=== PATIENT | female | born 1945 | race Caucasian/White ===

== ENCOUNTER 2016-10-05 18:42 | Emergency (ER) | payer MEDICARE, BC ==
[2016-10-05] MEDS ORDERED: NITROGLYCERIN SL 0.4 MG TABLET SL ONE (18:57)
--- NOTE | 2016-10-05 18:57 | ED Physician Documentation ---
PD HPI CHEST PAIN - Stated complaint Stated Complaint: CHEST PX - Chief complaint Chief Complaint: Cardiac - History obtained from History obtained from: Patient, Family - History of Present Illness Timing - onset: How many minutes ago (10), Today Timing - onset during: Rest Timing - duration: Minutes (10) Timing - details: Abrupt onset Pain level max: 8 Pain level now: 8 Quality: Aching, Pain Location: Substernal, Left chest Radiation: Back Improved by: Nothing Worsened by: No: Exertion, Inspiration, Eating, Movement, Palpation, Position Associated symptoms: Shortness of air, Nausea, Feeling faint / dizzy, General Weakness. No: Diaphoresis, Vomiting, Palpitations, Cough Similar symptoms before: Has not had sx before Recently seen: Not recently seen - Additional information Additional information: started after eating a indonesian dog. 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 - Allergies Allergies/Adverse Reactions: Allergies Allergy/AdvReac Type Severity Reaction Status Date / Time erythromycin base Allergy Unknown Verified 10/05/16 18:49 erythromycin lactobionate * Allergy Unknown Verified 10/05/16 18:49 [From Erythrocin] Penicillins Allergy Respiratory Verified 10/05/16 18:49 Sulfa (Sulfonamide Allergy Rash Verified 10/05/16 18:49 Antibiotics) PD ED PE NORMAL - Vitals Vital signs reviewed: Yes - General General: Alert and oriented X 3, No acute distress, Well developed/nourished - HEENT HEENT: PERRL, Moist mucous membranes - Neck Neck: Supple, no meningeal sign - Cardiac Cardiac: RRR, Strong equal pulses - Respiratory Respiratory: No respiratory distress, Clear bilaterally - Abdomen Abdomen: Soft, Non tender, Non distended - Derm Derm: Warm and dry - Extremities Extremities: No edema, No calf tenderness / cord - Neuro Neuro: Alert and oriented X 3, No motor deficit, No sensory deficit - Psych Psych: Normal mood, Normal affect Results - Vitals Vitals: Vital Signs - 24 hr 10/05/16 10/05/16 18:46 19:10 Temperature 37.0 C Heart Rate 117 H 119 H Respiratory 20 20 Rate Blood Pressure 196/116 H 162/103 H O2 Saturation 99 97 Oxygen O2 Source Room air - EKG (time done) 1853 Rate: Rate (enter#) (113) Rhythm: Sinus tachycardia [place]: Normal Intervals: Normal MD QRS: Normal Ischemia: ST elevation c/w ischemia (V2-3) Computer interpretation: Agree with computer 1908 Rate: Rate (enter#) (117) Rhythm: Sinus tachycardia [place]: Normal Intervals: Normal MD QRS: Normal Ischemia: ST elevation c/w ischemia (V2-3), Q waves (III, aVF) Computer interpretation: Agree with computer - Labs Labs: Laboratory Tests 10/05/16 10/05/16 10/05/16 18:52 18:52 18:52 WBC 8.1 RBC 5.69 H Hgb 16.1 H Hct 48.3 H MCV 84.8 MCH 28.4 MCHC 33.5 RDW 13.8 Plt Count 225 MPV 8.3 Neut # 4.2 Lymph # 2.7 [place] # 0.8 Eos # 0.3 Baso # 0.1 Absolute Nucleated RBC 0.01 Nucleated RBCs 0.1 Sodium 141 Potassium 2.9 L Chloride 103 Carbon Dioxide 28 Anion Gap 10.0 BUN 16 Creatinine 0.9 Estimated GFR (MDRD) 62 L Glucose 176 H Calcium 9.4 Total Bilirubin 0.6 AST 26 ALT 36 Alkaline Phosphatase 72 Troponin I < 0.04 Total Protein 7.8 Albumin 4.7 Globulin 3.1 Albumin/Globulin Ratio 1.5 Lipase 61 H PD MEDICAL DECISION MAKING - ED course Complexity details: reviewed results, re-evaluated patient, considered differential, d/w patient, d/w family, d/w business process consultant ED course: Activated as STEMI called @[phone] - Dr. Andreas Askew [facility] graciously accepts in transfer. Started on heparin gtt. 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 given NTG and pain and BP improved. Will hold plavix awaiting cardiology recommendations. CXR unable to be performed here as EMS ready to transport. Patient transferred to [facility] for further evaluation and care. Follow-up from the [facility]' Coordinator revealed a 90% stenosis with thrombus of the LAD. This was stented at [facility]. Departure - Departure Disposition: 02 Transfer Acute Care Hosp Clinical Impression: STEMI (ST elevation myocardial infarction) Qualifiers: Involved coronary artery: unspecified coronary artery Qualified Code(s): I21.3 - ST elevation (STEMI) myocardial infarction of unspecified site Condition: Stable Discharge Date/Time: 10/05/16 19:27
[2016-10-05] MEDS ORDERED: HEPARIN 5,000 UNIT/ML VIAL IVP ONE (18:58)
[2016-10-05] MEDS ORDERED: HEPARIN 25,000 UNITS/500 ML 500 ML IV STA (18:58)
[2016-10-05] MEDS: NITROGLYCERIN SL 0.4 MG TABLET SL PRN ×2 (18:58→19:06)
[2016-10-05] MEDS ORDERED: HEPARIN 25,000 UNITS/500 ML 500 ML IV ONE (19:00)
[2016-10-05] MEDS ORDERED: HEPARIN 5,000 UNIT/ML VIAL ONE (19:00)
[2016-10-05 19:03] LABS: BASOPHILS # (AUTO) 0.1 10^3/uL (0.0-0.1); BASOPHILS % (AUTO) 0.8 %; EOSINOPHILS # (AUTO) 0.3 10^3/uL (0.0-0.7); EOSINOPHILS % (AUTO) 3.5 %; HCT - HEMATOCRIT 48.3 % (37.0-47.0); HGB - HEMOGLOBIN 16.1 g/dL (12.0-16.0); LYMPHOCYTES # (AUTO) 2.7 10^3/uL (1.5-3.5); LYMPHOCYTES % (AUTO) 33.5 %; MEAN CORPUSCULAR HEMOGLOBIN 28.4 pg (27.0-31.0); MEAN CORPUSCULAR HGB CONC 33.5 g/dL (32.0-36.0); MEAN CORPUSCULAR VOLUME 84.8 fL (81.0-99.0); MEAN PLATELET VOLUME 8.3 fL (7.9-10.8); MONOCYTES # (AUTO) 0.8 10^3/uL (0.0-1.0); MONOCYTES % (AUTO) 10.3 %; NEUTROPHILS # (AUTO) 4.2 10^3/uL (1.5-6.6); NEUTROPHILS % (AUTO) 51.9 %; NUCLEATED RED BLOOD CELLS AUTO 0.1 /100WBC; RED BLOOD COUNT 5.69 10^6/uL (4.20-5.40); RED CELL DISTRIBUTION WIDTH 13.8 % (12.0-15.0); UNCORRECTED WHITE BLOOD COUNT 8.1 x10^3/uL; WHITE BLOOD COUNT 8.1 x10^3/uL (4.8-10.8)
[2016-10-05 19:12] VITALS: BP 162/103
[2016-10-05 19:14] LABS: ALBUMIN/GLOBULIN RATIO 1.5 (1.0-2.2); BILIRUBIN,TOTAL 0.6 mg/dL (0.2-1.0); CALCIUM 9.4 mg/dL (8.5-10.3); CREATININE 0.9 mg/dL (0.4-1.0); POTASSIUM 2.9 mmol/L (3.5-5.0); TOTAL PROTEIN 7.8 g/dL (6.7-8.2)
== END 2016-10-05 19:27 | disposition short-term general hospital (02) ==
LOC: ED 18:42
DX: I21.3 ST elevation (STEMI) myocardial infarction of unspecified site (principal); R00.0 Tachycardia, unspecified
CPT/HCPCS: 80053; 83690; 84484; 85025; 93005; 96365; 96376; 99284; A9270

== ENCOUNTER 2016-10-05 19:17 | Outpatient (CLI) | payer MEDICARE, BC | END 2016-10-05 19:18 | disposition short-term general hospital (02) | LOC: EMS 19:17 | PROVIDERS: ATTEND Surgery | DX: I21.3 ST elevation (STEMI) myocardial infarction of unspecified site (principal) | CPT/HCPCS: A0425; A0427 ==

== ENCOUNTER 2016-10-10 02:37 | Emergency (ER) | payer MEDICARE, BC ==
[2016-10-10 02:48] VITALS: BP 164/82
--- NOTE | 2016-10-10 03:02 | ED Physician Documentation ---
PD HPI WOUND RECHECK - Stated complaint Stated Complaint: BLEEDING,PAIN POST OP - Chief complaint Chief Complaint: Ext Problem - Histroy obtained from History obtained from: Patient, Family - History of Present Illness Location: Right Lower Extremity Timing - onset: Today Associated symptoms: Swelling Similar symptoms before: Work up / diagnostics, Treatment Recently seen: Surgery - Additional information Additional information: Patient is a 71 year old female with a recent stemi a few days ago. Patient states that she had some pain in her groin and felt a bump so she wanted to get the area evaluated. Review of Systems Constitutional: denies: Fever, Chills Eyes: denies: Loss of vision Ears: denies: Ear pain Nose: denies: Rhinorrhea / runny nose, Congestion Cardiac: denies: Chest pain / pressure, Palpitations, Calf pain Respiratory: denies: Dyspnea, Cough GI: denies: Abdominal Pain, Nausea, Vomiting : denies: Dysuria, Hematuria Skin: reports: Other (multiple ecchymosis in various stages of color) Musculoskeletal: reports: Extremity pain, Extremity swelling Neurologic: denies: Generalized weakness, Focal weakness, Numbness Immunocompromised: denies: Immunocompromised PD PAST MEDICAL HISTORY - Past Medical History Cardiovascular: Hypertension Respiratory: None Neuro: None Musculoskeletal: Osteoarthritis, Chronic back pain - Past Surgical History Past Surgical History: Yes General: Cholecystectomy, 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 - Present Medications Home Medications: Ambulatory Orders Medication Instructions Recorded Confirmed Aspirin 81 mg PO DAILY 10/10/16 10/10/16 Atorvastatin Calcium 10 mg PO DAILY 10/10/16 10/10/16 Cholecalciferol [Vitamin D3] 5,000 unit ORAL DAILY 10/10/16 10/10/16 Lactobacillus Combo No.23 [Fabricio 1 each PO DAILY 10/10/16 10/10/16 Probiotic] Metoprolol Succinate 50 mg PO DAILY 10/10/16 10/10/16 [place]-3 Fatty Acids/Fish Oil [Cvs 1 each PO DAILY 10/10/16 10/10/16 Fish Oil 1,200 mg Softgel] Prasugrel HCl [Effient] 10 mg PO DAILY 10/10/16 10/10/16 Spironolact/Hydrochlorothiazid 1 each PO DAILY 10/10/16 10/10/16 [Aldactazide 25-25 Tablet] - Allergies Allergies/Adverse Reactions: Allergies Allergy/AdvReac Type Severity Reaction Status Date / Time erythromycin base Allergy Unknown Verified 10/10/16 02:48 erythromycin lactobionate * Allergy Unknown Verified 10/10/16 02:48 [From Erythrocin] Penicillins Allergy Respiratory Verified 10/10/16 02:48 Sulfa (Sulfonamide Allergy Rash Verified 10/10/16 02:48 Antibiotics) - Social History Does the pt smoke?: No Smoking Status: Never smoker Does the pt drink ETOH?: No Does the pt have substance abuse?: No - Immunizations Immunizations are current?: Yes - POLST Patient has POLST: No PD ED PE NORMAL - Vitals Vital signs reviewed: Yes - General General: Alert and oriented X 3, No acute distress - HEENT HEENT: Atraumatic, PERRL - Neck Neck: Supple, no meningeal sign - Cardiac Cardiac: RRR, No murmur - Respiratory Respiratory: No respiratory distress - Abdomen Abdomen: Soft - Extremities Extremities: Normal ROM s pain, No edema - Neuro Neuro: Alert and oriented X 3, No motor deficit, No sensory deficit, Normal speech - Psych Psych: Normal mood, Normal affect PD ED PE EXPANDED - Abdomen Abdomen: Other (mild tenderness to palpation in right groin, no pulsatile mass, miminal swelling under 0.5cm) - Derm Derm: Bruising (bruising across patient's abdomen) Results - Vitals Vitals: Vital Signs - 24 hr 10/10/16 02:44 Temperature 36.2 C L Heart Rate 94 Respiratory 16 Rate Blood Pressure 164/82 H O2 Saturation 95 Oxygen O2 Source Room air PD MEDICAL DECISION MAKING - ED course Complexity details: reviewed old records, re-evaluated patient, considered differential, d/w patient, d/w family ED course: Patient was seen and examined at bedside. bedside ultrasound was performed in the region where she had pain, there were no signs of hematoma or any extravascular fluid collection. patient and were given detailed discharge and follow up instructions. Patient and were comfortable with the plan and stable for discharge with outpatient follow up. Departure - Departure Disposition: 01 Home, Self Care Clinical Impression: Hematoma Condition: Good Instructions: ED Hematoma Follow-Up: Natalie Mo MD [Primary Care Provider] - Within 1 week Comments: the ultrasound showed no large hematoma or active extravascular collection. you should apply warm compresses to the area and follow up with the surgical team. You should monitor for signs of hypotension and tachycardia. You may return to the emergency department at any time for expanding hematoma. worsening pain, new worsening or uncontrollable symptoms. Discharge Date/Time: 10/10/16 03:22
== END 2016-10-10 03:22 | disposition home or self-care (01) ==
LOC: ED 02:37
DX: L76.32 Postprocedural hematoma of skin and subcutaneous tissue following other procedure (principal); I10 Essential (primary) hypertension; M19.90 Unspecified osteoarthritis, unspecified site; Z79.82 Long term (current) use of aspirin
CPT/HCPCS: 99282; 99283

== ENCOUNTER 2016-10-17 06:48 | Emergency (ER) | payer MEDICARE, BC ==
--- NOTE | 2016-10-17 07:31 | ED Physician Documentation ---
History of Present Illness - Stated complaint Stated Complaint: RAPID HR - Chief complaint Chief Complaint: Cardiac - History obtained from History obtained from: Patient, Family - Additonal information Additional information: Patient is a 71-year-old female who had a ST segment myocardial infarction on 05 October. She is sent to an outside hospital and had stenting done. 3 stents were placed in LAD at that time. She is currently on Effient and aspirin. Post stent placement she was taken back to the angiography suite and a second look was performed he has had recurrence of symptoms and there is a concern for stent closure. The stents at this time were found to be widely patent. She was seen here on the for bruising in the right groin which is improving. She is here this morning with a complaint of fluttering sensation in her chest. She believes she might be hypokalemic again since this is occurred before. She denies any chest pain or chest pressure there is no shortness of breath. She has not had any nausea, vomiting, fever or chills. She has had some issues with constipation. Review of systems: For pertinent positive and negatives in the review of systems please see the history of present illness, otherwise all other systems have been reviewed and are negative. Dragon disclaimer: Parts of this medical record were created using voice recognition technology. Because of the inherent limitations of this system, occasional same sounding word substitutions do occur and persist despite proofreading. Please read the document for context. Review of Systems Ten Systems: 10 systems reviewed and negative Cardiac: reports: Palpitations. denies: Chest pain / pressure, Pedal edema, Calf pain Respiratory: denies: Dyspnea, Cough GI: reports: Constipation. 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: Hysterectomy - Present Medications Home Medications: Ambulatory Orders Medication Instructions Recorded Confirmed Aspirin 81 mg PO DAILY 10/10/16 10/17/16 Atorvastatin Calcium 10 mg PO DAILY 10/10/16 10/17/16 Cholecalciferol [Vitamin D3] 5,000 unit ORAL DAILY 10/10/16 10/17/16 Lactobacillus Combo No.23 [Fabricio 1 each PO DAILY 10/10/16 10/17/16 Probiotic] Metoprolol Succinate 50 mg PO DAILY 10/10/16 10/17/16 [place]-3 Fatty Acids/Fish Oil [Cvs 1 each PO DAILY 10/10/16 10/17/16 Fish Oil 1,200 mg Softgel] Prasugrel HCl [Effient] 10 mg PO DAILY 10/10/16 10/17/16 Spironolact/Hydrochlorothiazid 1 each PO DAILY 10/10/16 10/17/16 [Aldactazide 25-25 Tablet] - Allergies Allergies/Adverse Reactions: Allergies Allergy/AdvReac Type Severity Reaction Status Date / Time erythromycin base Allergy Unknown Verified 10/10/16 02:48 erythromycin lactobionate * Allergy Unknown Verified 10/10/16 02:48 [From Erythrocin] Penicillins Allergy Respiratory Verified 10/10/16 02:48 Sulfa (Sulfonamide Allergy Rash Verified 10/10/16 02:48 Antibiotics) - Social History Does the pt smoke?: No Smoking Status: Never smoker Does the pt drink ETOH?: No Does the pt have substance abuse?: No - Immunizations Immunizations are current?: Yes - POLST Patient has POLST: No PD ED PE NORMAL - General General: Alert and oriented X 3, No acute distress, Well developed/nourished - HEENT HEENT: Atraumatic, PERRL - Neck Neck: Supple, no meningeal sign - Cardiac Cardiac: RRR, No murmur, No gallop, No rub - Respiratory Respiratory: No respiratory distress, Clear bilaterally - Abdomen Abdomen: Normal bowel sounds, Soft, Non tender, Non distended - Back Back: No CVA TTP - Derm Derm: Normal color, Warm and dry, No rash, Other - Extremities Extremities: No deformity, No tenderness to palpate, Normal ROM s pain - Neuro Neuro: Alert and oriented X 3, No motor deficit, No sensory deficit - Psych Psych: Normal mood, Normal affect Results - Vitals Vitals: Vital Signs - 24 hr 10/17/16 10/17/16 10/17/16 06:57 07:51 08:30 Temperature 36.4 C L Heart Rate 92 76 76 Respiratory 20 18 18 Rate Blood Pressure 146/89 H 113/63 117/73 O2 Saturation 98 94 Oxygen O2 Source Room air - Labs Labs: Laboratory Tests 10/17/16 10/17/16 10/17/16 07:02 07:02 07:02 WBC 8.6 RBC 5.41 H Hgb 15.5 Hct 46.4 MCV 85.7 MCH 28.7 MCHC 33.5 RDW 13.9 Plt Count 299 MPV 8.5 Neut # 5.7 Lymph # 1.7 [place] # 0.9 Eos # 0.2 Baso # 0.1 Absolute Nucleated RBC 0.00 Nucleated RBCs 0.1 Sodium 135 Potassium 3.6 Chloride 96 L Carbon Dioxide 28 Anion Gap 11.0 BUN 22 H Creatinine 1.0 Estimated GFR (MDRD) 55 L Glucose 141 H Calcium 9.2 Magnesium 2.2 Troponin I < 0.04 B-Natriuretic Peptide Urine Color Urine Clarity Urine pH Ur Specific [place] Urine Protein Urine Glucose (UA) Urine Ketones Urine Occult Blood Urine Nitrite Urine Bilirubin Urine Urobilinogen Ur Leukocyte Esterase Urine RBC Urine WBC Ur Squamous Epith Cells Urine Bacteria Ur Microscopic Review Urine Culture Comments 10/17/16 10/17/16 07:02 09:08 WBC RBC Hgb Hct MCV MCH MCHC RDW Plt Count MPV Neut # Lymph # [place] # Eos # Baso # Absolute Nucleated RBC Nucleated RBCs Sodium Potassium Chloride Carbon Dioxide Anion Gap BUN Creatinine Estimated GFR (MDRD) Glucose Calcium Magnesium Troponin I B-Natriuretic Peptide 25 Urine Color YELLOW Urine Clarity CLEAR Urine pH 6.0 Ur Specific [place] 1.010 Urine Protein NEGATIVE Urine Glucose (UA) NEGATIVE Urine Ketones TRACE Urine Occult Blood NEGATIVE Urine Nitrite NEGATIVE Urine Bilirubin NEGATIVE Urine Urobilinogen 0.2 (NORMAL) Ur Leukocyte Esterase SMALL H Urine RBC 0-5 Urine WBC 4-5 Ur Squamous Epith Cells MANY Squamous H Urine Bacteria Few Ur Microscopic Review INDICATED Urine Culture Comments NOT INDICATED PD MEDICAL DECISION MAKING - ED course Complexity details: reviewed old records, reviewed results, re-evaluated patient , considered differential, d/w patient, d/w family, other ED course: Patient is a 71-year-old female status post 3 stents to her LAD on 10/06/16. The patient was taken back to the [facility] for recurrent chest pain however she had ZHANG grade III flow and there is no evidence of stent malfunction. She presents today with just a fluttering sensation in her chest which is reminiscent of episodes of hypokalemia. She has not had any chest pain heaviness shortness of breath or any other anginal equivalent. Her EKG was done and this EKG shows normal sinus rhythm 87 bpm NE QRS and QT intervals are all normal. There is incomplete left bundle branch block and T-wave inversion and V2 V3 and V4. These T-wave changes in anterior leads are similar to the EKG done post cath on 728 as I did obtain the medical records from the hospital who did her angiography. What is new however is a small Q-wave in inferiorly which is not unexpected given her acute STEMI. There are no new or unsuspected changes on this EKG tend a. Routine labs were done and were normal with the exception of mild elevation of her glucose. It was 140. A urinalysis was done to make sure there is no glycosuria and had 1+ ketones. She is given a liter fluid and feels better. The patient's cardiac enzymes are normal. Chest x-ray shows no acute intrathoracic disease. There is no evidence of uncontrolled diabetes. This fluttering sensation in her chest is not indicative of ongoing ischemia or stent malfunction. I believe the patient is able to be discharged at this time and good condition. Disposition: To home Clinical impression: 1. Palpitations 2. Status post cardiac stenting on 10/06/16 Departure - Departure Disposition: 01 Home, Self Care Clinical Impression: Heart palpitations Condition: Good Instructions: ED Palpitations Follow-Up: Natalie Mo MD [Primary Care Provider] -
[2016-10-17 07:52] LABS: BASOPHILS # (AUTO) 0.1 10^3/uL (0.0-0.1); BASOPHILS % (AUTO) 1.1 %; EOSINOPHILS # (AUTO) 0.2 10^3/uL (0.0-0.7); EOSINOPHILS % (AUTO) 2.2 %; HCT - HEMATOCRIT 46.4 % (37.0-47.0); HGB - HEMOGLOBIN 15.5 g/dL (12.0-16.0); LYMPHOCYTES # (AUTO) 1.7 10^3/uL (1.5-3.5); LYMPHOCYTES % (AUTO) 20.2 %; MEAN CORPUSCULAR HEMOGLOBIN 28.7 pg (27.0-31.0); MEAN CORPUSCULAR HGB CONC 33.5 g/dL (32.0-36.0); MEAN CORPUSCULAR VOLUME 85.7 fL (81.0-99.0); MEAN PLATELET VOLUME 8.5 fL (7.9-10.8); MONOCYTES # (AUTO) 0.9 10^3/uL (0.0-1.0); MONOCYTES % (AUTO) 10.3 %; NEUTROPHILS # (AUTO) 5.7 10^3/uL (1.5-6.6); NEUTROPHILS % (AUTO) 66.2 %; NUCLEATED RED BLOOD CELLS AUTO 0.1 /100WBC; RED BLOOD COUNT 5.41 10^6/uL (4.20-5.40); RED CELL DISTRIBUTION WIDTH 13.9 % (12.0-15.0); UNCORRECTED WHITE BLOOD COUNT 8.6 x10^3/uL; WHITE BLOOD COUNT 8.6 x10^3/uL (4.8-10.8)
--- NOTE | 2016-10-17 08:04 | XRAY Preliminary Report ---
Exam: XR Chest 1 View IMPRESSION: 1. Mild elevation of the right hemidiaphragm. 2. Lungs otherwise well-aerated without consolidation or edema. [facility] SITE ID: [id number]
--- NOTE | 2016-10-17 08:06 | XRAY Report ---
EXAM: CHEST RADIOGRAPHY EXAM DATE: 10/17/2016 07:49 AM. CLINICAL HISTORY: Palpitations, rapid heart rate. COMPARISON: None. TECHNIQUE: 1 view. FINDINGS: Heart size appears within normal limits. Mild elevation of the right hemidiaphragm. No focal pulmonar y consolidation or edema. IMPRESSION: 1. Mild elevation of the right hemidiaphragm. 2. Lungs otherwise well-aerated without consolidation or edema. [facility] Referring Provider Line: [phone] SITE ID: [id number]
[2016-10-17 08:25] LABS: CALCIUM 9.2 mg/dL (8.5-10.3); MAGNESIUM 2.2 mg/dL (1.7-2.8); POTASSIUM 3.6 mmol/L (3.5-5.0)
[2016-10-17 09:19] LABS: BILIRUBIN,URINE NEGATIVE (NEGATIVE)
[2016-10-17 09:20] LABS: UA w/ MICROSCOPIC CHARGE YES
[2016-10-17 09:26] LABS: UR CULTURE IF IND NOT INDICATED
[2016-10-17] MEDS ORDERED: SODIUM CHLORIDE 0.9% 1,000 ML IV ONE (09:38)
[2016-10-17 10:19] VITALS: BP 121/60
== END 2016-10-17 10:38 | disposition home or self-care (01) ==
LOC: ED 06:48
DX: R00.2 Palpitations (principal); I44.7 Left bundle-branch block, unspecified; I45.81 Long QT syndrome; I10 Essential (primary) hypertension; I25.2 Old myocardial infarction; Z95.5 Presence of coronary angioplasty implant and graft; Z79.82 Long term (current) use of aspirin; Z79.01 Long term (current) use of anticoagulants
CPT/HCPCS: 36415; 71010; 80048; 81001; 81003; 83735; 83880; 84484; 85025; 87086; 99284

== ENCOUNTER 2016-10-24 11:11 | Outpatient (CLI) | payer MEDICARE, BC ==
[2016-10-24 11:43] LABS: CALCIUM 9.3 mg/dL (8.5-10.3); CREATININE 0.9 mg/dL (0.4-1.0); POTASSIUM 3.6 mmol/L (3.5-5.0)
== END 2016-10-24 11:12 | disposition home or self-care (01) ==
LOC: LAB 11:11
PROVIDERS: ATTEND Internal Medicine
DX: I21.02 ST elevation (STEMI) myocardial infarction involving left anterior descending coronary artery (principal); I10 Essential (primary) hypertension
CPT/HCPCS: 36415; 80048

== ENCOUNTER 2016-10-25 12:15 | Emergency (ER) | payer MEDICARE, BC ==
[2016-10-25 12:56] LABS: BASOPHILS # (AUTO) 0.1 10^3/uL (0.0-0.1); BASOPHILS % (AUTO) 1.3 %; EOSINOPHILS # (AUTO) 0.1 10^3/uL (0.0-0.7); HCT - HEMATOCRIT 45.2 % (37.0-47.0); LYMPHOCYTES # (AUTO) 1.4 10^3/uL (1.5-3.5); LYMPHOCYTES % (AUTO) 24.2 %; MEAN CORPUSCULAR HEMOGLOBIN 28.2 pg (27.0-31.0); MEAN CORPUSCULAR HGB CONC 33.2 g/dL (32.0-36.0); MEAN PLATELET VOLUME 8.2 fL (7.9-10.8); MONOCYTES # (AUTO) 0.6 10^3/uL (0.0-1.0); MONOCYTES % (AUTO) 9.7 %; NEUTROPHILS # (AUTO) 3.7 10^3/uL (1.5-6.6); NEUTROPHILS % (AUTO) 62.8 %; RED BLOOD COUNT 5.32 10^6/uL (4.20-5.40); UNCORRECTED WHITE BLOOD COUNT 5.9 x10^3/uL; WHITE BLOOD COUNT 5.9 x10^3/uL (4.8-10.8)
[2016-10-25 13:02] LABS: INR 1.2 (0.8-1.2); PT - PROTHROMBIN TIME 13.1 secs (9.9-12.6)
[2016-10-25 13:08] LABS: ALBUMIN/GLOBULIN RATIO 1.5 (1.0-2.2); BILIRUBIN,TOTAL 0.9 mg/dL (0.2-1.0); CALCIUM 9.2 mg/dL (8.5-10.3); POTASSIUM 3.5 mmol/L (3.5-5.0); TOTAL PROTEIN 7.6 g/dL (6.7-8.2)
[2016-10-25 13:16] LABS: CREATINE KINASE MB 0.9 ng/mL (0.6-6.3)
[2016-10-25 13:20] LABS: TROPONIN I < 0.04 ng/mL (<0.49)
--- NOTE | 2016-10-25 13:22 | ED Physician Documentation ---
PD HPI CHEST PAIN - Stated complaint Stated Complaint: HIGH BP - Chief complaint Chief Complaint: Cardiac - History obtained from History obtained from: Patient - History of Present Illness Timing - onset: Other (She had an anterior STEMI on October 05. She had 3 stents placed in the LAD that night at [facility]. Her roundhouse worker is Dr. Lovelace. The next morning had more symptoms and was taken back to cath but there was no in- stent restenosis. Today she was sitting in her car relaxing and developed a feeling of being out of it and some mild chest pressure and shortness of breath which lasted about 10 minutes. During that time she checked her blood pressure and it was quite high. Now feels better.) Review of Systems Ten Systems: 10 systems reviewed and negative Constitutional: denies: Fever, Chills Cardiac: reports: Chest pain / pressure, Palpitations. 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 Cardiovascular: Coronary stent - Present Medications Home Medications: Ambulatory Orders Medication Instructions Recorded Confirmed Aspirin 81 mg PO DAILY 10/10/16 10/17/16 Atorvastatin Calcium 10 mg PO DAILY 10/10/16 10/17/16 Cholecalciferol [Vitamin D3] 5,000 unit ORAL DAILY 10/10/16 10/17/16 Lactobacillus Combo No.23 [Fabricio 1 each PO DAILY 10/10/16 10/17/16 Probiotic] Metoprolol Succinate 50 mg PO DAILY 10/10/16 10/17/16 [place]-3 Fatty Acids/Fish Oil [Cvs 1 each PO DAILY 10/10/16 10/17/16 Fish Oil 1,200 mg Softgel] Prasugrel HCl [Effient] 10 mg PO DAILY 10/10/16 10/17/16 Spironolact/Hydrochlorothiazid 1 each PO DAILY 10/10/16 10/17/16 [Aldactazide 25-25 Tablet] Nitroglycerin 0.4 mg SL Q5M PRN #1 bottle 10/25/16 - Allergies Allergies/Adverse Reactions: Allergies Allergy/AdvReac Type Severity Reaction Status Date / Time erythromycin base Allergy Unknown Verified 10/10/16 02:48 erythromycin lactobionate * Allergy Unknown Verified 10/10/16 02:48 [From Erythrocin] Penicillins Allergy Respiratory Verified 10/10/16 02:48 Sulfa (Sulfonamide Allergy Rash Verified 10/10/16 02:48 Antibiotics) - Social History Does the pt smoke?: No Smoking Status: Never smoker Does the pt drink ETOH?: No Does the pt have substance abuse?: No - Family History Family history: reports: Non contributory - Immunizations Immunizations are current?: Yes - POLST Patient has POLST: No PD ED PE NORMAL - Vitals Vital signs reviewed: Yes (BP 110/70 when I examine her) - General General: Alert and oriented X 3, No acute distress - HEENT HEENT: PERRL, EOMI - Neck Neck: Supple, no meningeal sign, No bony TTP - Cardiac Cardiac: RRR (with occ PVCs on monitor), No murmur - Respiratory Respiratory: No respiratory distress, Clear bilaterally - Abdomen Abdomen: Soft, Non tender - Extremities Extremities: No edema, No calf tenderness / cord - Neuro Neuro: Alert and oriented X 3, Normal speech - Psych Psych: Normal mood, Normal affect Results - Vitals Vitals: Vital Signs - 24 hr 10/25/16 10/25/16 12:25 14:09 Temperature 36.4 C L Heart Rate 98 69 Respiratory 18 15 Rate Blood Pressure 178/91 H 135/54 H O2 Saturation 96 97 Oxygen O2 Source Room air - EKG (time done) 1225 Rate: Rate (enter#) (85) Rhythm: NSR [place]: LAD Intervals: Other (IVCD with LVH and biphasic anterior T waves not too diff from 10/17/16) Computer interpretation: Agree with computer - Labs Labs: Laboratory Tests 10/25/16 10/25/16 10/25/16 12:48 12:48 12:48 WBC 5.9 RBC 5.32 Hgb 15.0 Hct 45.2 MCV 85.0 MCH 28.2 MCHC 33.2 RDW 14.0 Plt Count 248 MPV 8.2 Neut # 3.7 Lymph # 1.4 L [place] # 0.6 Eos # 0.1 Baso # 0.1 Absolute Nucleated RBC 0.00 Nucleated RBCs 0.0 PT 13.1 H INR 1.2 Sodium 136 Potassium 3.5 Chloride 97 L Carbon Dioxide 29 Anion Gap 10.0 BUN 17 Creatinine 1.0 Estimated GFR (MDRD) 55 L Glucose 153 H Calcium 9.2 Total Bilirubin 0.9 AST 31 ALT 43 Alkaline Phosphatase 73 Total Creatine Kinase 41 CK-MB (CK-2) Troponin I Total Protein 7.6 Albumin 4.6 Globulin 3.0 Albumin/Globulin Ratio 1.5 Lipase 73 H 10/25/16 12:48 WBC RBC Hgb Hct MCV MCH MCHC RDW Plt Count MPV Neut # Lymph # [place] # Eos # Baso # Absolute Nucleated RBC Nucleated RBCs PT INR Sodium Potassium Chloride Carbon Dioxide Anion Gap BUN Creatinine Estimated GFR (MDRD) Glucose Calcium Total Bilirubin AST ALT Alkaline Phosphatase Total Creatine Kinase CK-MB (CK-2) 0.9 Troponin I < 0.04 Total Protein Albumin Globulin Albumin/Globulin Ratio Lipase - Rads (name of study) 1v chest Radiology: EMP read contemporaneously (NAD) PD MEDICAL DECISION MAKING - ED course ED course: 71-year-old woman with resolved episode of chest pain, EKGs are expected after anterior STEMI. Case discussed by phone with her roundhouse worker, Dr. Russo who recommended conservative care, patient has a stress test scheduled in 2 days. Departure - Departure Disposition: 01 Home, Self Care Clinical Impression: Chest pain Qualifiers: Chest pain type: unspecified Qualified Code(s): R07.9 - Chest pain, unspecified Dyspnea Qualifiers: Dyspnea type: unspecified Qualified Code(s): R06.00 - Dyspnea, unspecified Condition: Good Record reviewed to determine appropriate education?: Yes Instructions: ED Chest Pain NonCardiac Prescriptions: Nitroglycerin 0.4 mg SL Q5M PRN #1 bottle PRN Reason: Chest Pain Comments: FOLLOWUP FOR STRESS NEXT WEEK SCHEDULED.
--- NOTE | 2016-10-25 13:59 | XRAY Preliminary Report ---
Exam: XR Chest 1 View IMPRESSION: No acute cardiopulmonary abnormality. [facility] SITE ID: [id number]
--- NOTE | 2016-10-25 14:02 | XRAY Report ---
EXAM: CHEST RADIOGRAPHY EXAM DATE: 10/25/2016 01:45 PM. CLINICAL HISTORY: Chest pain. COMPARISON: 10/17/2016. TECHNIQUE: 1 view. FINDINGS: Lungs/Pleura: Right diaphragm remains mildly elevated. No consolidative process. No significant inter julio change. Mediastinum: Within exam limitations, cardiomediastinal contour is normal. Other: None. IMPRESSION: No acute cardiopulmonary abnormality. [facility] Referring Provider Line: [phone] SITE ID: [id number]
[2016-10-25 14:35] VITALS: BP 120/64
== END 2016-10-25 14:35 | disposition home or self-care (01) ==
LOC: ED 12:15
DX: R07.9 Chest pain, unspecified (principal); R06.00 Dyspnea, unspecified; R94.31 Abnormal electrocardiogram [ECG] [EKG]; I10 Essential (primary) hypertension; I25.2 Old myocardial infarction; Z79.82 Long term (current) use of aspirin; Z95.5 Presence of coronary angioplasty implant and graft
CPT/HCPCS: 36415; 71010; 80053; 82550; 82553; 83690; 84484; 85025; 85610; 99283; 99284

== ENCOUNTER 2016-12-07 12:21 | Outpatient (CLI) | payer MEDICARE, BC ==
--- NOTE | 2016-12-07 15:02 | MRI Report ---
EXAM: MRI LUMBAR SPINE WITHOUT CONTRAST EXAM DATE: 12/07/2016 12:41 p.m. CLINICAL HISTORY: Low back pain. COMPARISON: Lumbar spine plain films 08/22/2007. TECHNIQUE: Multiplanar, multisequence T1-weighted and fluid-sensitive sequences of the lumbar spine f rom T12 to S1 without contrast. Other: None. FINDINGS: Spinal Cord: The conus terminates at T12-L1. The conus medullaris and cauda equina are unremarkable. The lumbar spinal canal is adequate. Alignment: Minimal, 2 mm, spondylolisthesis is seen at L4-L5. This is unchanged. Bone Marrow: Five [id number] lumbar vertebral bodies are assumed. Heterogeneous striated signal change is seen throughout the L2 and L3 vertebral bodies. Predominantly increased T1 and T2 signal wi th decreased STIR signal is present. Scattered patchy areas of decreased T1 with increased T2 and STI R signal are seen. Small foci of concavity are seen in the superior endplates consistent with Schmorl 's node formation. No pathologic fracture. Disk Levels/Facets: T12-L1: Unremarkable on sagittal series. L1-L2: Unremarkable. L2-L3: Mild degenerative facet change. No stenosis. L3-L4: Mild degenerative facet change. No stenosis. L4-L5: Marked right-sided and moderate left-sided hypertrophic degenerative facet change is seen. Min imal spondylolisthesis. Moderate loss of disk space height. Mild lateral disk bulge. Effacement of th e thecal sac is noted. No canal stenosis. Flattening of exiting right L4 nerve root is seen within th e foramen due primarily to degenerative facet change. Mild right foraminal stenosis. L5-S1: Moderate right-sided and marked left-sided hypertrophic degenerative facet change is seen. Fac et change causes effacement of the posterior aspect of exiting left L5 nerve root within the foramen. No foraminal stenosis. Musculature: Normal. No edema or fatty atrophy. Other: The partially visualized retroperitoneum is unremarkable. IMPRESSION: 1. Heterogeneous striated bone marrow signal change in the L2 and L3 vertebral bodies. This may be se condary to hemangioma. 2. L4-L5: Moderate to marked degenerative disk and facet change, greater on the right. Right mild for aminal stenosis. 3. L5-S1: Moderate to marked degenerative facet change, greater on the left. Mild left foraminal narr owing. Comment: The following findings are so common in adults without low back pain that while we report th eir presence, they must be interpreted with caution and in the context of the clinical situation. (Re faustina Wellington et al, Spine 2001) Prevalence of findings in patients without low back pain: Disk degeneration (any evidence): 92% Disk desiccation/T2 signal loss: 83% Disk height loss: 56% Disk bulge: 64% Disk protrusion: 32% Annular tear/high intensity zone: 38% [facility] Referring Provider Line: [phone] SITE ID: [id number]
== END 2016-12-07 12:22 | disposition home or self-care (01) ==
LOC: DI 12:21
PROVIDERS: ATTEND Internal Medicine
DX: M47.896 Other spondylosis, lumbar region (principal); M51.36 Other intervertebral disc degeneration, lumbar region; M43.16 Spondylolisthesis, lumbar region
CPT/HCPCS: 72148

== ENCOUNTER 2017-10-17 08:44 | Outpatient (CLI) | payer MEDICARE, BC ==
--- NOTE | 2017-10-17 14:19 | CT Report ---
Procedure Date: 10/17/2017 Accession Number: [id number] / [id number] Procedure: CT - Chest W/O CPT Code: FULL RESULT: EXAM: CT CHEST EXAM DATE: 10/17/2017 09:07 AM. CLINICAL HISTORY: LUNG NODULE LEFT UPPER LOBE,SEEN 10/05/16. COMPARISONS: 10/25/2016. TECHNIQUE: Routine helical CT imaging was performed through the chest. IV contrast: None. Reconstructions: Coronal and sagittal. In accordance with CT protocol optimization, one or more of the following dose reduction techniques were utilized for this exam: automated exposure control, adjustment of mA and/or KV based on patient size, or use of iterative reconstructive technique. FINDINGS: Lungs/Pleura: Mildly elevated right hemidiaphragm. Mild biapical pleural-parenchymal scarring. Linear atelectasis or scar right lower lobe. 4 mm left upper lobe nodule (image 23 series 4). No mass. No pleural effusion or pneumothorax. Mediastinum: Normal heart size. Left coronary stent. Bones: Unremarkable. Visualized Abdomen: Cholecystectomy. Small calcified splenic granulomas. Other: None. IMPRESSION: 1. 4 mm left upper lobe nodule. No further follow-up is required per Fleischner Society guidelines if the patient is low risk. If the patient is high risk for lung cancer a 12 month follow-up could be considered. If there is a prior CT chest, an addendum could be performed with comparison if made available. 2. Mildly elevated right hemidiaphragm. [facility]
== END 2017-10-17 08:45 | disposition home or self-care (01) ==
LOC: DI 08:44
PROVIDERS: ATTEND Internal Medicine
DX: R91.1 Solitary pulmonary nodule (principal)
CPT/HCPCS: 71250

== ENCOUNTER 2017-11-29 22:53 | Emergency (ER) | payer MEDICARE, BC ==
[2017-11-29 23:23] LABS: BASOPHILS # (AUTO) 0.1 10^3/uL (0.0-0.1); EOSINOPHILS # (AUTO) 0.3 10^3/uL (0.0-0.7); EOSINOPHILS % (AUTO) 5.2 %; HGB - HEMOGLOBIN 15.2 g/dL (12.0-16.0); LYMPHOCYTES # (AUTO) 1.8 10^3/uL (1.5-3.5); LYMPHOCYTES % (AUTO) 27.5 %; MEAN CORPUSCULAR HEMOGLOBIN 28.8 pg (27.0-31.0); MEAN CORPUSCULAR HGB CONC 33.9 g/dL (32.0-36.0); MEAN PLATELET VOLUME 8.1 fL (7.9-10.8); MONOCYTES # (AUTO) 0.7 10^3/uL (0.0-1.0); NEUTROPHILS # (AUTO) 3.7 10^3/uL (1.5-6.6); NEUTROPHILS % (AUTO) 56.3 %; PLT - PLATELET COUNT 213 10^3/uL (130-450); RED BLOOD COUNT 5.27 10^6/uL (4.20-5.40); RED CELL DISTRIBUTION WIDTH 14.2 % (12.0-15.0); WHITE BLOOD COUNT 6.6 x10^3/uL (4.8-10.8)
[2017-11-29 23:36] LABS: ALBUMIN 4.4 g/dL (3.2-5.5); ALBUMIN/GLOBULIN RATIO 1.3 (1.0-2.2); BILIRUBIN,TOTAL 0.6 mg/dL (0.2-1.0); CREATININE 0.8 mg/dL (0.4-1.0); TOTAL PROTEIN 7.9 g/dL (6.7-8.2)
--- NOTE | 2017-11-29 23:41 | XRAY Report ---
Reason: chest pain Procedure Date: 11/29/2017 Accession Number: [id number] / [id number] Procedure: XR - Chest 2 View X-Ray CPT Code: 47794 FULL RESULT: EXAM: CHEST RADIOGRAPHY EXAM DATE: 11/29/2017 11:12 PM. CLINICAL HISTORY: Chest pain. Palpitations. COMPARISON: CHEST 1 VIEW 10/25/2016 1:48 PM. TECHNIQUE: 2 views. FINDINGS: Lungs/Pleura: No focal opacities evident. No pleural effusion. No pneumothorax. Normal volumes. Chronic elevation of the right hemidiaphragm. Mediastinum: Heart and mediastinal contours are unremarkable. Other: No compression fracture. IMPRESSION: No acute findings. Chronic elevation of the anterior right hemidiaphragm. [facility]
--- NOTE | 2017-11-30 00:41 | ED Physician Documentation ---
PD HPI CHEST PAIN - Stated complaint Stated Complaint: CP - Chief complaint Chief Complaint: Cardiac - History obtained from History obtained from: Patient - History of Present Illness Timing - onset: Enter time (23:00), Today Timing - onset during: Rest Location: Substernal Radiation: No: Jaw, Neck, Back, Abdominal, Left upper extremity, Right upper extremity Improved by: Nothing Worsened by: Other Associated symptoms: No: Shortness of air, Nausea, Vomiting Recently seen: Not recently seen Review of Systems Constitutional: reports: Reviewed and negative Cardiac: reports: Chest pain / pressure. 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 : None HEENT: None Psych: None Musculoskeletal: Osteoarthritis, Chronic back pain Derm: None - Past Surgical History Past Surgical History: Yes General: Cholecystectomy, Appendectomy /MOVEMAN: Hysterectomy Cardiovascular: Coronary stent - Present Medications Home Medications: Ambulatory Orders Medication Instructions Recorded Confirmed Aspirin 81 mg PO DAILY 10/10/16 01/14/17 Atorvastatin Calcium 80 mg PO DAILY 10/10/16 01/14/17 Cholecalciferol [Vitamin D3] 5,000 unit ORAL DAILY 10/10/16 01/14/17 Lactobacillus Combo No.23 [Fabricio 1 each PO DAILY 10/10/16 01/14/17 Probiotic] Metoprolol Succinate 50 mg PO DAILY 10/10/16 01/14/17 [place]-3 Fatty Acids/Fish Oil [Cvs 1 each PO DAILY 10/10/16 01/14/17 Fish Oil 1,200 mg Softgel] Prasugrel HCl [Effient] 10 mg PO DAILY 10/10/16 01/14/17 Nitroglycerin 0.4 mg SL Q5M PRN #1 bottle 10/25/16 01/14/17 Lisinopril [Zestril] 5 mg PO DAILY 01/14/17 01/14/17 Magnesium Oxide [Magnesium] 1 cap PO DAILY 01/14/17 01/14/17 Potassium Gluconate 1 tab PO DAILY 01/14/17 01/14/17 Spironolactone 25 mg PO DAILY 01/14/17 01/14/17 - Allergies Allergies/Adverse Reactions: Allergies Allergy/AdvReac Type Severity Reaction Status Date / Time erythromycin base Allergy Unknown Verified 01/14/17 21:58 erythromycin lactobionate * Allergy Unknown Verified 01/14/17 21:58 [From Erythrocin] Penicillins Allergy Respiratory Verified 01/14/17 21:58 Sulfa (Sulfonamide Allergy Rash Verified 01/14/17 21:58 Antibiotics) - Social History Does the pt smoke?: No Smoking Status: Never smoker Does the pt drink ETOH?: No Does the pt have substance abuse?: No - Immunizations Immunizations are current?: Yes - POLST Patient has POLST: No PD ED PE NORMAL - Vitals Vital signs reviewed: Yes - General General: Alert and oriented X 3, No acute distress, Well developed/nourished - Cardiac Cardiac: RRR, No murmur, No gallop, No rub - Respiratory Respiratory: No respiratory distress, Clear bilaterally - Abdomen Abdomen: Soft, Non tender - Derm Derm: Normal color, Warm and dry, No rash - Extremities Extremities: No edema Results - Vitals Vitals: Oxygen O2 Source Room air - EKG (time done) No standard instances Rate: Rate (enter#) (76) Rhythm: NSR [place]: Normal Intervals: Normal [place], 2nd degree AVB type 1 QRS: LVH Ischemia: Normal ST segments, Q waves (III, aVF) - Labs Labs: Laboratory Tests 11/29/17 11/29/17 11/29/17 23:05 23:05 23:05 WBC 6.6 RBC 5.27 Hgb 15.2 Hct 44.8 MCV 85.0 MCH 28.8 MCHC 33.9 RDW 14.2 Plt Count 213 MPV 8.1 Neut # (Auto) 3.7 Lymph # (Auto) 1.8 [place] # (Auto) 0.7 Eos # (Auto) 0.3 Baso # (Auto) 0.1 Absolute Nucleated RBC 0.00 Nucleated RBC % 0.1 Sodium 140 Potassium 3.1 L Chloride 100 L Carbon Dioxide 32 Anion Gap 8.0 BUN 13 Creatinine 0.8 Estimated GFR (MDRD) 71 L Glucose 121 H Calcium 9.0 Total Bilirubin 0.6 AST 33 ALT 38 Alkaline Phosphatase 98 Troponin I < 0.04 Total Protein 7.9 Albumin 4.4 Globulin 3.5 Albumin/Globulin Ratio 1.3 Lipase 84 H PD MEDICAL DECISION MAKING - ED course Complexity details: reviewed results, re-evaluated patient, considered differential, d/w patient - Sepsis Event Vital Signs: Oxygen O2 Source Room air Departure - Departure Disposition: 01 Home, Self Care Clinical Impression: Hypokalemia Chest pain Qualifiers: Chest pain type: unspecified Qualified Code(s): R07.9 - Chest pain, unspecified Condition: Good Instructions: ED Chest Pain Atypical Unkn Cause, ED Potassium Deficiency Follow-Up: Natalie Mo MD [Primary Care Provider] - Discharge Date/Time: 11/30/17 01:25
[2017-11-30] MEDS ORDERED: POTASSIUM BICARB 25 MEQ TABLET PO STA (01:07)
[2017-11-30 01:15] VITALS: BP 131/84
== END 2017-11-30 01:25 | disposition home or self-care (01) ==
LOC: ED 22:53
DX: E87.6 Hypokalemia (principal); R07.9 Chest pain, unspecified; R94.31 Abnormal electrocardiogram [ECG] [EKG]; I10 Essential (primary) hypertension; I25.2 Old myocardial infarction; Z95.5 Presence of coronary angioplasty implant and graft; Z79.82 Long term (current) use of aspirin
CPT/HCPCS: 36415; 71046; 80053; 83690; 84484; 85025; 93005; 99283; A9270

== ENCOUNTER 2018-05-09 14:56 | Outpatient (CLI) | payer MEDICARE, BC ==
--- NOTE | 2018-05-10 08:57 | Mammography Report ---
Reason: SCREENING MAMMO Procedure Date: 05/09/2018 Accession Number: [id number] / [id number] Procedure: GABRIELLE - Screening Mammo w/Bo CPT Code: FULL RESULT: EXAM: Screening Mammo w/Bo DATE: 05/09/2018 3:27 PM CLINICAL HISTORY: Screening encounter. History of 3 biopsies in the right breast between 1972 and approximately 2006, all benign. No reported risk factors. TECHNIQUE: Bilateral CC and MLO views were obtained. COMPARISON: 01/29/2016 through 03/01/2009. FINDINGS: The breasts demonstrate scattered fibroglandular densities bilaterally. A few well-circumscribed tiny bilateral nodules all demonstrate stability of 2 years or greater and show no aggressive features or concerning interval change, typically benign. Postbiopsy changes in the right breast are stable. No suspicious masses, clustered microcalcifications, or regions of architectural distortion are identified. IMPRESSION: Benign findings RECOMMENDATION: Routine annual screening unless otherwise clinically indicated. BIRADS CATEGORY 2: Benign findings STANDARD QUALIFYING STATEMENTS: 1. This examination was not reviewed with the aid of Computer-Aided Detection (CAD). 2. A negative or benign imaging report should not delay biopsy if clinically suspicious findings are present. Consider surgical consultation if warrented. More than 5% of cancers are not identified by imaging. 3. Dense breasts may obscure an underlying neoplasm. 4. This examination was reviewed with the aid of 3D breast imaging (tomosynthesis).
== END 2018-05-09 14:57 | disposition home or self-care (01) ==
LOC: DI 14:56
PROVIDERS: ATTEND Internal Medicine
DX: Z12.31 Encounter for screening mammogram for malignant neoplasm of breast (principal)
CPT/HCPCS: 77063; 77067

== ENCOUNTER 2018-05-24 11:58 | Emergency (ER) | payer MEDICARE, BC ==
[2018-05-24 13:53] VITALS: BP 149/78
--- NOTE | 2018-05-24 14:31 | ED Physician Documentation ---
History of Present Illness - Stated complaint Stated Complaint: MED REACTION - Chief complaint Chief Complaint: Allergic Rx - History obtained from History obtained from: Patient, Family - History of Present Illness Timing: Today Pain level max: 0 Pain level now: 0 - Additonal information Additional information: 73-year-old female started on clindamycin for a infected tooth after dental work. Developed a facial rash today. No lip swelling. No tongue swelling. No difficulty breathing. Currently feeling better. Last dose was approximately 5 hours ago. 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 : None HEENT: None Psych: None Musculoskeletal: Osteoarthritis, Chronic back pain Derm: None - Past Surgical History Past Surgical History: Yes General: Cholecystectomy, Appendectomy /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 Cardiovascular: Coronary stent - Present Medications Home Medications: Ambulatory Orders Medication Instructions Recorded Confirmed Aspirin 81 mg PO DAILY 10/10/16 01/14/17 Atorvastatin Calcium 80 mg PO DAILY 10/10/16 01/14/17 Cholecalciferol [Vitamin D3] 5,000 unit ORAL DAILY 10/10/16 01/14/17 Lactobacillus Combo No.23 [Fabricio 1 each PO DAILY 10/10/16 01/14/17 Probiotic] Metoprolol Succinate 50 mg PO DAILY 10/10/16 01/14/17 [place]-3 Fatty Acids/Fish Oil [Cvs 1 each PO DAILY 10/10/16 01/14/17 Fish Oil 1,200 mg Softgel] Prasugrel HCl [Effient] 10 mg PO DAILY 10/10/16 01/14/17 Nitroglycerin 0.4 mg SL Q5M PRN #1 bottle 10/25/16 01/14/17 Lisinopril [Zestril] 5 mg PO DAILY 01/14/17 01/14/17 Magnesium Oxide [Magnesium] 1 cap PO DAILY 01/14/17 01/14/17 Potassium Gluconate 1 tab PO DAILY 01/14/17 01/14/17 Spironolactone 25 mg PO DAILY 01/14/17 01/14/17 - Allergies Allergies/Adverse Reactions: Allergies Allergy/AdvReac Type Severity Reaction Status Date / Time erythromycin base Allergy Unknown Verified 05/24/18 13:51 erythromycin lactobionate * Allergy Unknown Verified 05/24/18 13:51 [From Erythrocin] Penicillins Allergy Respiratory Verified 05/24/18 13:51 Sulfa (Sulfonamide Allergy Rash Verified 05/24/18 13:51 Antibiotics) clindamycin AdvReac Itching Verified 05/24/18 13:51 - Social History Does the pt smoke?: No Smoking Status: Never smoker Does the pt drink ETOH?: No Does the pt have substance abuse?: No - Immunizations Immunizations are current?: Yes - POLST Patient has POLST: No PD ED PE NORMAL - Vitals Vital signs reviewed: Yes - General General: Alert and oriented X 3, No acute distress - HEENT HEENT: Ears normal, Moist mucous membranes, Pharynx benign - Neck Neck: Supple, no meningeal sign - Cardiac Cardiac: RRR - Respiratory Respiratory: No respiratory distress, Clear bilaterally - Abdomen Abdomen: Soft, Non tender, Non distended - Derm Derm: Warm and dry, Other (Patient with a rash over her cheeks, forehead and upper chest. Blanches easily) - Neuro Neuro: Alert and oriented X 3 Results - Vitals Vitals: Vital Signs - 24 hr 05/24/18 13:51 Temperature 36.6 C Heart Rate 89 Respiratory 16 Rate Blood Pressure 149/78 H O2 Saturation 97 Oxygen O2 Source Room air PD MEDICAL DECISION MAKING - ED course Complexity details: considered differential, d/w patient ED course: Patient with an allergic reaction to clindamycin. Will stop this. No airway involvement. Will allow the drug to exit her system. She can take Benadryl for itching. No need for steroids at this time. No anaphylaxis. Mother counseled regarding signs and symptoms for which I believe and urgent re-evaluation would be necessary. Mother with good understanding of and agreement to plan and is comfortable going home at this time This document was made in part using voice recognition software. While efforts are made to proofread this document, sound alike and grammatical errors may occur. Departure - Departure Disposition: 01 Home, Self Care Clinical Impression: Allergic reaction caused by a drug Qualifiers: Encounter type: initial encounter Qualified Code(s): T78.40XA - Allergy, unspecified, initial encounter Condition: Good Instructions: ED Drug React Allergic Follow-Up: Natalie Mo MD [Primary Care Provider] - Within 1 week Comments: Stop the clindamycin and this should improve. Follow-up with your doctor for further care.
== END 2018-05-24 15:43 | disposition home or self-care (01) ==
LOC: ED 11:58
DX: R21 Rash and other nonspecific skin eruption (principal); T36.8X5A Adverse effect of other systemic antibiotics, initial encounter; I10 Essential (primary) hypertension
CPT/HCPCS: 99282

== ENCOUNTER 2018-11-02 07:25 | Outpatient (CLI) | payer MEDICARE, BC ==
[2018-11-02 07:43] LABS: BASOPHILS % (AUTO) 0.7 %; EOSINOPHILS # (AUTO) 0.2 10^3/uL (0.0-0.7); EOSINOPHILS % (AUTO) 3.6 %; HGB - HEMOGLOBIN 14.7 g/dL (12.0-16.0); LYMPHOCYTES # (AUTO) 1.1 10^3/uL (1.5-3.5); LYMPHOCYTES % (AUTO) 19.8 %; MEAN CORPUSCULAR HEMOGLOBIN 27.7 pg (27.0-31.0); MEAN CORPUSCULAR HGB CONC 32.2 g/dL (32.0-36.0); MEAN CORPUSCULAR VOLUME 86.1 fL (81.0-99.0); MEAN PLATELET VOLUME 10.3 fL (7.9-10.8); MONOCYTES # (AUTO) 0.6 10^3/uL (0.0-1.0); MONOCYTES % (AUTO) 9.8 %; NEUTROPHILS # (AUTO) 3.7 10^3/uL (1.5-6.6); NEUTROPHILS % (AUTO) 65.7 %; PLT - PLATELET COUNT 188 10^3/uL (130-450); RED BLOOD COUNT 5.31 10^6/uL (4.20-5.40); RED CELL DISTRIBUTION WIDTH 14.2 % (12.0-15.0); WHITE BLOOD COUNT 5.6 x10^3/uL (4.8-10.8)
[2018-11-02 08:05] LABS: ALBUMIN 4.2 g/dL (3.2-5.5); ALBUMIN/GLOBULIN RATIO 1.2 (1.0-2.2); BILIRUBIN,TOTAL 0.9 mg/dL (0.2-1.0); CALCIUM 9.2 mg/dL (8.5-10.3); CREATININE 0.9 mg/dL (0.4-1.0); TOTAL PROTEIN 7.6 g/dL (6.7-8.2)
[2018-11-02 08:46] LABS: HB2 TOTAL 15.9 g/dL; HEMOGLOBIN A1C 0.79 g/dL; HEMOGLOBIN A1C % 6.7 % (4.6-6.2)
== END 2018-11-02 07:26 | disposition home or self-care (01) ==
LOC: LAB 07:25
PROVIDERS: ATTEND Internal Medicine
DX: R73.02 Impaired glucose tolerance (oral) (principal)
CPT/HCPCS: 36415; 80053; 83036; 85025

== ENCOUNTER 2019-05-10 16:44 | Emergency (ER) | payer MEDICARE, BC ==
--- NOTE | 2019-05-10 17:26 | ED Physician Documentation ---
PD HPI CHEST PAIN - Stated complaint Stated Complaint: BP CONCERN - NEW MEDS - Chief complaint Chief Complaint: General - History obtained from History obtained from: Patient - History of Present Illness Timing - onset: Today Timing - onset during: Light activity Timing - details: Gradual onset, Now resolved Quality: Tightness, Other (She developed some tightness in her chest after taking her blood pressure. She thinks it might be anxiety. Otherwise though she has been having intermittent palpitations and surges in her chest for the last several weeks. 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 Previously she had been taken off metoprolol a couple of months ago because of low heart rate as well as low blood pressure. Her blood pressure apparently had still been low at times. She had been feeling okay otherwise but noticed a little bit of a headache and blurred vision and took her blood pressure and it was elevated at 204/84. She was concerned about it and came for evaluation. No focal deficits. Her headache is improving on route here.) Review of Systems Constitutional: denies: Fever, Chills, Myalgias Nose: denies: Rhinorrhea / runny nose, Congestion Throat: denies: Sore throat Respiratory: denies: Cough GI: denies: Abdominal Pain, Nausea, Vomiting Neurologic: reports: Headache (mild pressure feeling and noted her BP elevated; no ongoing headache.). denies: Focal weakness, Numbness, Near syncope, Confused, Altered mental status Psychiatric: reports: Anxiety. 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 ENGINEER: Hysterectomy Cardiovascular: Coronary stent - Present Medications Home Medications: Ambulatory Orders Medication Instructions Recorded Confirmed Aspirin 81 mg PO DAILY 10/10/16 01/14/17 Atorvastatin Calcium 80 mg PO DAILY 10/10/16 01/14/17 Cholecalciferol [Vitamin D3] 5,000 unit ORAL DAILY 10/10/16 01/14/17 Nitroglycerin 0.4 mg SL Q5M PRN #1 bottle 10/25/16 01/14/17 lisinopriL [Zestril] 5 mg PO DAILY 01/14/17 01/14/17 Clopidogrel Bisulfate [Clopidogrel] 05/10/19 - Allergies Allergies/Adverse Reactions: Allergies Allergy/AdvReac Type Severity Reaction Status Date / Time erythromycin base Allergy Unknown Verified 05/24/18 13:51 erythromycin lactobionate * Allergy Unknown Verified 05/24/18 13:51 [From Erythrocin] Penicillins Allergy Respiratory Verified 05/24/18 13:51 Sulfa (Sulfonamide Allergy Rash Verified 05/24/18 13:51 Antibiotics) clindamycin AdvReac Itching Verified 05/24/18 13:51 - Social History Does the pt smoke?: No Smoking Status: Never smoker Does the pt drink ETOH?: No Does the pt have substance abuse?: No - Immunizations Immunizations are current?: Yes - POLST Patient has POLST: No PD ED PE NORMAL - Vitals Vital signs reviewed: Yes - General General: Alert and oriented X 3, No acute distress, Well developed/nourished - HEENT HEENT: PERRL, EOMI, Pharynx benign, Other (fundi appear normal) - Neck Neck: Supple, no meningeal sign, No adenopathy - Cardiac Cardiac: RRR, No murmur - Respiratory Respiratory: Clear bilaterally - Abdomen Abdomen: Soft, Non tender - Derm Derm: Normal color, Warm and dry - Extremities Extremities: No tenderness to palpate, Normal ROM s pain, No edema, No calf tenderness / cord - Neuro Neuro: Alert and oriented X 3, 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 No: ST elevation c/w ischemia, ST depression - Labs Labs: Laboratory Tests 05/10/19 05/10/19 05/10/19 17:29 17:29 17:29 WBC 5.9 RBC 5.23 Hgb 14.9 Hct 45.6 MCV 87.2 MCH 28.5 MCHC 32.7 RDW 14.1 Plt Count 197 MPV 10.0 Neut # (Auto) 3.5 Lymph # (Auto) 1.5 [place] # (Auto) 0.5 Eos # (Auto) 0.3 Baso # (Auto) 0.1 Absolute Nucleated RBC 0.00 Nucleated RBC % 0.0 Sodium 138 Potassium 3.3 L Chloride 101 Carbon Dioxide 28 Anion Gap 9.0 BUN 12 Creatinine 0.8 Estimated GFR (MDRD) 70 L Glucose 139 H Calcium 9.2 Magnesium Total Bilirubin 0.7 AST 28 ALT 25 Alkaline Phosphatase 72 Troponin I High Sens 4.9 Total Protein 7.3 Albumin 4.4 Globulin 2.9 Albumin/Globulin Ratio 1.5 Lipase 66 H 05/10/19 17:29 WBC RBC Hgb Hct MCV MCH MCHC RDW Plt Count MPV Neut # (Auto) Lymph # (Auto) [place] # (Auto) Eos # (Auto) Baso # (Auto) Absolute Nucleated RBC Nucleated RBC % Sodium Potassium Chloride Carbon Dioxide Anion Gap BUN Creatinine Estimated GFR (MDRD) Glucose Calcium Magnesium 2.0 Total Bilirubin AST ALT Alkaline Phosphatase Troponin I High Sens Total Protein Albumin Globulin Albumin/Globulin Ratio Lipase PD MEDICAL DECISION MAKING - ED course Complexity details: considered differential (The blood pressure elevation alone I would not be concerned about she had a feeling of palpitations at times and had not had her electrolytes checked in a while even though she had been on some diuretic. It seemed appropriate to check blood tests. Meanwhile her blood pressure is improving on its own and she does not have any symptoms at this point. She has not a very low dose of the lisinopril however and we can bump that up a little bit), d/w patient Departure - Departure Disposition: Home, Self Care Clinical Impression: Heart palpitations, Hypokalemia High blood pressure Qualifiers: Hypertension type: unspecified Qualified Code(s): I10 - Essential (primary) hypertension Condition: Stable Record reviewed to determine appropriate education?: Yes Instructions: ED HTN Established Follow-Up: Nataile Mo MD [Primary Care Provider] - Comments: Stay well-hydrated. Increase your lisinopril to 10 mg each evening. For a week, resume your Spironolactone at a half a tablet daily and then discontinue again. Add a potassium supplement daily for 1 to 2 weeks. Check your blood pressure once or twice daily and record it and see what the trend of your pressure is over the next several days to week. Contact your cork tile floor layer to decide on any other medication changes at that time. Discharge Date/Time: 05/10/19 19:10
[2019-05-10 17:35] LABS: BASOPHILS # (AUTO) 0.1 10^3/uL (0.0-0.1); EOSINOPHILS # (AUTO) 0.3 10^3/uL (0.0-0.7); EOSINOPHILS % (AUTO) 4.6 %; HGB - HEMOGLOBIN 14.9 g/dL (12.0-16.0); LYMPHOCYTES # (AUTO) 1.5 10^3/uL (1.5-3.5); LYMPHOCYTES % (AUTO) 25.4 %; MEAN CORPUSCULAR HEMOGLOBIN 28.5 pg (27.0-31.0); MEAN CORPUSCULAR HGB CONC 32.7 g/dL (32.0-36.0); MEAN CORPUSCULAR VOLUME 87.2 fL (81.0-99.0); MONOCYTES # (AUTO) 0.5 10^3/uL (0.0-1.0); MONOCYTES % (AUTO) 9.2 %; NEUTROPHILS # (AUTO) 3.5 10^3/uL (1.5-6.6); NEUTROPHILS % (AUTO) 59.5 %; PLT - PLATELET COUNT 197 10^3/uL (130-450); RED BLOOD COUNT 5.23 10^6/uL (4.20-5.40); RED CELL DISTRIBUTION WIDTH 14.1 % (12.0-15.0); WHITE BLOOD COUNT 5.9 x10^3/uL (4.8-10.8)
[2019-05-10 17:47] LABS: ALBUMIN 4.4 g/dL (3.2-5.5); ALBUMIN/GLOBULIN RATIO 1.5 (1.0-2.2); BILIRUBIN,TOTAL 0.7 mg/dL (0.2-1.0); CALCIUM 9.2 mg/dL (8.5-10.3); CREATININE 0.8 mg/dL (0.4-1.0); TOTAL PROTEIN 7.3 g/dL (6.7-8.2)
[2019-05-10] MEDS ORDERED: POTASSIUM CHLORIDE 20 MEQ TABLET PO STA (18:11)
[2019-05-10] MEDS ORDERED: lisinopriL 5 MG TABLET PO STA (18:11)
[2019-05-10] MEDS ORDERED: SPIRONOLACTONE 25 MG TABLET PO STA (18:19)
[2019-05-10 19:10] VITALS: BP 170/72
== END 2019-05-10 19:10 | disposition home or self-care (01) ==
LOC: ED 16:44
DX: I10 Essential (primary) hypertension (principal); R00.2 Palpitations; E87.6 Hypokalemia; Z79.82 Long term (current) use of aspirin
CPT/HCPCS: 36415; 80053; 83690; 83735; 84484; 85025; 93005; 99284; A9270

== ENCOUNTER 2020-07-08 09:57 | Outpatient (CLI) | payer MEDICARE, BC ==
--- NOTE | 2020-07-09 12:06 | Mammography Report ---
BILATERAL DIGITAL SCREENING MAMMOGRAM 3D/2D: 07/08/2020 CLINICAL: Routine screening. Routine screening. Comparison is made to exams dated: 05/09/2018 mammogram, 01/29/2016 mammogram, 02/03/2014 mammogram, 12/27/2010 mammogram, and 12/27/2010 ultrasound - [facility]. There are scattered fibroglandular elements in both breasts. There is a 0.9 cm oval equal density focal asymmetry in the left breast at 5 o'clock anterior depth. This is more prominent and increased in size. No other significant masses, calcifications, or other findings are seen in either breast. IMPRESSION: INCOMPLETE: NEEDS ADDITIONAL IMAGING EVALUATION The 0.9 cm oval equal density focal asymmetry in the left breast resembles a cyst or a lymph node and is indeterminate. Additional views with possible ultrasound are recommended. This exam was interpreted at Station ID: [id number]. NOTE: For mammograms, a report in lay terms will be sent to the patient. Approximately 15% of breast malignancies will not be visualized mammographically. In the management of a palpable breast mass, a negative mammogram must not discourage biopsy of a clinically suspicious lesion. Electronically Signed By: Darnell Stokes M.D. [email or web address]/[email or web address]:07/08/2020 11:32:01 ACR BI-RADS Category 0: Incomplete 3340F PARENCHYMAL PATTERN: (A) - The breast(s) demonstrate(s) scattered fibroglandular densities. BI-RADS CATEGORY: (0) - 0 Mammo and [place] [id number] Immediate follow-up LATERALITY: (L)
== END 2020-07-08 09:58 | disposition home or self-care (01) ==
LOC: DI 09:57
PROVIDERS: ATTEND Internal Medicine
DX: Z12.31 Encounter for screening mammogram for malignant neoplasm of breast (principal); R92.8 Other abnormal and inconclusive findings on diagnostic imaging of breast

== ENCOUNTER 2020-08-04 08:30 | Outpatient (CLI) | payer MEDICARE, BC ==
--- NOTE | 2020-08-06 07:04 | Mammography Report ---
UNILATERAL LEFT DIGITAL DIAGNOSTIC MAMMOGRAM 3D/2D: 08/04/2020 CLINICAL: Patient returns today to evaluate a focal asymmetry in the left breast. Comparison is made to exams dated: 07/08/2020 mammogram, 05/09/2018 mammogram, 01/29/2016 mammogram, 1 04/05/2013 mammogram, and 12/27/2010 mammogram - [facility]. There are scattered fi broglandular elements in left breast. Redemonstration of previously described 1 cm oval equal density focal asymmetry in the left breast at 5 o'clock anterior depth. This is seen in additional views. This is more prominent and increased i n size. There also is a 0.5 cm oval focal asymmetry in the left breast at 6 o'clock anterior depth. This is more prominent. There is possible architectural distortion associated with the focal asymmetry. No other significant masses or calcifications are seen in the breast. IMPRESSION: INCOMPLETE: NEEDS ADDITIONAL IMAGING EVALUATION The 1 cm oval equal density focal asymmetry in the left breast at 5 o'clock anterior depth resembles a cyst or a lymph node and is indeterminate. An ultrasound is recommended for further evaluation and is scheduled to immediately follow this examination. The 0.5 cm oval focal asymmetry in the left breast at 6 o'clock anterior depth is indeterminate. An ultrasound is recommended for further evaluation and is scheduled to immediately follow this examinat ion. This exam was interpreted at Station ID: [id number]. NOTE: For mammograms, a report in lay terms will be sent to the patient. Approximately 15% of breast malignancies will not be visualized mammographically. In the management of a palpable breast mass, a negative mammogram must not discourage biopsy of a clinically suspicious lesion. Electronically Signed By: Darnell Stokes M.D. aty/:08/04/2020 09:32:25 ACR BI-RADS Category 0: Incomplete 3340F PARENCHYMAL PATTERN: (A) - The breast(s) demonstrate(s) scattered fibroglandular densities. BI-RADS CATEGORY: (0) - 0 Ultrasound [id number] Immediate follow-up LATERALITY: (L)
--- NOTE | 2020-08-06 07:04 | Ultrasound Report ---
LIMITED ULTRASOUND OF LEFT BREAST AND AXILLA: 08/04/2020 CLINICAL: Patient returns today to evaluate a focal asymmetries in the left breast. Comparison is made to exams dated: 08/04/2020 mammogram, 07/08/2020 mammogram, 05/09/2018 mammogram, mammogram, 02/03/2014 mammogram, and 12/27/2010 mammogram - [facility]. Color flow and real-time ultrasound of the left breast 4-6 o'clock, and axilla regions were performe d. Byers scale images of the real-time examination were reviewed. There is a 0.5 cm x 0.2 cm x 0.5 cm oval mass with an angular margin in the left breast at 5 o'clock anterior depth 5 cm from the nipple. This oval mass is hypoechoic with no posterior acoustic shadowi ng or enhancement. This correlates with mammography findings. Color flow imaging demonstrates that there is no vascularity present. There also is a 1 cm x 0.3 cm x 0.6 cm wider than tall oval mass in the left breast at 4 o'clock ante rior depth 5 cm from the nipple. This oval mass is hypoechoic. This correlates with mammography fin dings. Color flow imaging demonstrates that there is no vascularity present. No significant abnormalities were seen sonographically in the left axilla. IMPRESSION: SUSPICIOUS OF MALIGNANCY The 0.5 cm x 0.2 cm x 0.5 cm oval mass in the left breast at 5 o'clock anterior depth is suspicious o f malignancy. An ultrasound guided biopsy is recommended. The 1 cm x 0.3 cm x 0.6 cm wider than tall oval mass in the left breast at 4 o'clock anterior depth r esembles a complicated cyst or a fibroadenoma and is probably benign. Follow-up left mammogram and l eft ultrasound in 6 months is recommended. Findings and recommendations were discussed with the patient by Dr. Coffman during today's examination. This exam was interpreted at Station ID: [id number]. Electronically Signed By: Darnell Stokes M.D. aty/:08/04/2020 13:59:02 Ultrasound BI-RADS: 4 Suspicious for malignancy BI-RADS CATEGORY: (4) - 4 None [id number] Immediate follow-up LATERALITY: ()
== END 2020-08-04 08:31 | disposition home or self-care (01) ==
LOC: DI 08:30
PROVIDERS: ATTEND Internal Medicine
DX: R92.8 Other abnormal and inconclusive findings on diagnostic imaging of breast (principal)

== ENCOUNTER 2020-08-12 09:23 | Outpatient (CLI) | payer MEDICARE, BC ==
[2020-08-12] MEDS ORDERED: BUFFERED LIDOCAINE 10 ML SYRINGE ONE (09:38)
[2020-08-12] MEDS ORDERED: LIDOCAINE MPF 1%-EPI 1:200000 30 ML VIAL ONE (09:40)
[2020-08-12] MEDS ORDERED: BUFFERED LIDOCAINE 10 ML SYRINGE IU ONE (11:38)
[2020-08-12] MEDS ORDERED: LIDOCAINE MPF 1%-EPI 1:200000 30 ML VIAL SUBQ ONE (11:44)
--- NOTE | 2020-08-13 08:14 | Mammography Report ---
UNILATERAL LEFT DIGITAL DIAGNOSTIC MAMMOGRAM 3D/2D: 08/12/2020 CLINICAL: Post left breast ultrasound biopsy clip placement imaging. Comparison is made to exams dated: 08/12/2020 ultrasound biopsy, 08/04/2020 ultrasound, 08/04/2020 mammo gram, 07/08/2020 mammogram, and 05/09/2018 mammogram - [facility]. There are scatter ed fibroglandular elements in left breast. There is a marker clip in the appropriate position in the left breast at 5 o'clock anterior depth. T his marker clip placement is at the biopsy site. IMPRESSION: POST PROCEDURE MAMMOGRAM FOR MARKER PLACEMENT There was a successful marker clip placement in the left breast anterior depth. Future imaging is recommended as follows: 02/04/2021 left mammogram and an ultrasound. This exam was interpreted at Station ID: [id number]. NOTE: For mammograms, a report in lay terms will be sent to the patient. Approximately 15% of breast malignancies will not be visualized mammographically. In the management of a palpable breast mass, a negative mammogram must not discourage biopsy of a clinically suspicious lesion. Electronically Signed By: Ludin courtney/oren:08/12/2020 12:38:15 ACR BI-RADS Category Post-procedure mammogram for marker placement PARENCHYMAL PATTERN: (A) - The breast(s) demonstrate(s) scattered fibroglandular densities. BI-RADS CATEGORY: () - Unspecified - other recall n/a LATERALITY: (B)
--- NOTE | 2020-08-18 08:25 | Ultrasound Report ---
ULTRASOUND GUIDED BIOPSY LEFT BREAST USING VACUUM DEVICE WITH MARKING DEVICE INSERTED AND POST DIGITA L MAMMOGRAPHIC AND ULTRASOUND IMAGIN08/12/2020 CLINICAL: Left breast mass. PATIENT CONSENT: Risks (minor bleeding, infection, vasovagal reaction and repeat procedure), benefits and alternatives were explained to the patient and written informed consent was obtained. Correlation is made to exams dated: 08/04/2020 ultrasound, 08/04/2020 mammogram, 07/08/2020 mammogram, and 05/09/2018 mammogram - Located within [facility]. An ultrasound guided biopsy using real-time ultrasound was performed for the 0.5 cm x 0.2 cm x 0.5 cm mass located in the left breast at 5 o'clock anterior depth 5 cm from the nipple. This was describe d on the previous mammography and ultrasound reports. The skin was prepped in the usual manner. Loc al anesthetic was administered to the access site. A skin neil was made in the breast. The abnormal ity was approached from the lateral aspect. A 13 gauge biopsy needle was placed adjacent to the abno rmality under ultrasound guidance. Once the needle was documented to be in the correct location, fiv e specimens were obtained using the Mammotome biopsy system. A clip was inserted into the biopsy cav ity. A sterile dressing was applied to the access site. Post procedure digital mammographic and ult rasound imaging demonstrates the location device at the targeted area. The specimens were sent to [facility] for pathological analysis. IMPRESSION: ULTRASOUND GUIDED BIOPSY MALIGNANT Ultrasound guided biopsy of the 0.5 cm x 0.2 cm x 0.5 cm mass in the left breast at 5 o'clock anterio r depth 5 cm from the nipple was successful with no apparent post procedure complications. Pathology indicates malignant invasive ductal carcinoma (ID). Pathology results are concordant with imaging findings. A surgical/oncologic consultation is recommended. A follow-up left mammogram and an ultrasound in 6 months is recommended to demonstrate stability of a 4:00 left breast 1.0 cm probable fibroadenoma. This exam was interpreted at Station ID: [id number]. janene Warren M.D., M.D./:08/17/2020 16:12:28 BI-RADS CATEGORY: () - Mammo and [place] [id number] 6 month follow-up LATERALITY: (L)
== END 2020-08-12 09:24 | disposition home or self-care (01) ==
LOC: DI 09:23
PROVIDERS: ATTEND Internal Medicine
DX: C50.512 Malignant neoplasm of lower-outer quadrant of left female breast (principal); Z17.0 Estrogen receptor positive status [ER+]
CPT/HCPCS: 19083; 88305; 88342; 88360

== ENCOUNTER 2020-10-19 08:17 | Day surgery (SDC) | payer MEDICARE, BC ==
[~2020-10-19 08:17] MED LIST: BUFFERED LIDOCAINE 10 ML SYRINGE ONE; LIDOCAINE MPF 1%-EPI 1:200000 30 ML VIAL ONE
[2020-10-19] MEDS ORDERED: LACTATED RINGERS 1,000 ML IV ONE ×2 (08:29→13:56)
[2020-10-19] MEDS ORDERED: ceFAZolin 2 GM/50 ML 2 GM/50 ML BAG IV ONE (09:08)
[2020-10-19] MEDS ORDERED: BUPIVACAINE 0.5% PF 30 ML VIAL ONE (11:50)
[2020-10-19] MEDS ORDERED: LIDOCAINE 2%-EPI 1:100000 20 ML MDV ONE (11:50)
[2020-10-19] MEDS ORDERED: BUPIVACAINE 0.5% PF 30 ML VIAL INFIL ONE (11:55)
[2020-10-19] MEDS ORDERED: LIDOCAINE 2%-EPI 1:100000 20 ML MDV SUBQ ONE (11:55)
[2020-10-19] MEDS ORDERED: ePHEDrine 50 MG/ML VIAL IVP PRN (11:58)
[2020-10-19] MEDS ORDERED: HYDROmorphone 0.5 MG/0.5 ML SYRINGE IVP PRN (11:58)
[2020-10-19] MEDS ORDERED: NALOXONE 0.4 MG/ML VIAL IVP PRN (11:58)
[2020-10-19] MEDS ORDERED: ATROPINE ABBOJECT 1 MG/10 ML SYRINGE IVP PRN (11:58)
[2020-10-19] MEDS ORDERED: ONDANSETRON 4 MG/2 ML VIAL IVP PRN ×2 (11:58→13:59)
[2020-10-19] MEDS ORDERED: MORPHINE 2 MG/ML CARPUJECT IVP PRN (11:58)
[2020-10-19] MEDS ORDERED: METOCLOPRAMIDE 10 MG/2 ML VIAL IVP PRN (11:58)
[2020-10-19] MEDS ORDERED: fentaNYL 100 MCG/2 ML VIAL IVP PRN (11:58)
--- NOTE | 2020-10-19 11:58 | ANESTHESIA ---
Pre-Anesthesia VS, & Labs - Diagnosis breast CA - Procedure lumpectomy with sentinel node bx Vital Signs: Temp Pulse Resp BP Pulse Ox 36.4 C L 101 H 16 170/83 H 98 10/19/20 08:30 10/19/20 08:30 10/19/20 08:30 10/19/20 08:30 10/19/20 08:30 Height: 5 ft 8 in Weight (kg): 84 kg Body Mass Index: 28.1 BMI Classification: Overweight - NPO >8 hours - Is Patient ?: No Home Medications and Allergies Aspirin 81 mg PO DAILY 10/10/16 Atorvastatin Calcium 20 mg PO DAILY 10/10/16 Cholecalciferol [Vitamin D3] 2,000 unit ORAL DAILY 10/10/16 lisinopriL [Zestril] 10 mg PO DAILY 01/14/17 Allergies/Adverse Reactions: Allergies Allergy/AdvReac Type Severity Reaction Status Date / Time erythromycin base Allergy Unknown Verified 08/26/20 15:28 erythromycin lactobionate * Allergy Unknown Verified 08/26/20 15:28 [From Erythrocin] Penicillins Allergy Respiratory Verified 08/26/20 15:28 Sulfa (Sulfonamide Allergy Rash Verified 08/26/20 15:28 Antibiotics) clindamycin AdvReac Itching Verified 08/26/20 15:28 Anes History & Medical History - Anesthetic History Anesthesia Complications: reports: No previous complications Family history of Anesthesia Complications: Denies Family history of Malignant Hyperthermia: Denies - Medical History Cardiovascular: reports: Hypertension, [place], Other (stent x3 4 yrs ago) Pulmonary: reports: None Gastrointestinal: reports: None Urinary: reports: None Musculoskeletal: reports: Osteoarthritis Endocrine/Autoimmune: reports: None Blood Disorders: reports: None Skin: reports: Eczema, Other Smoking Status: Never smoker - Surgical History General: reports: Cholecystectomy, Appendectomy Eyes Ears Nose Throat (EENT): reports: Cataracts, Tonsil/Adenoidectomy Cardiothoracic: reports: Coronary stent Gynecologic: reports: Hysterectomy Plan Anesthesia Type: General Consent for Procedure(s) Verified and Reviewed: Yes Code Status: Attempt Resuscitation ASA classification: 3-Severe systemic disease Is this case an emergency?: No
[2020-10-19] MEDS ORDERED: LACTATED RINGERS 1,000 ML IV SCH (12:00)
[2020-10-19] MEDS ORDERED: DEXAMETHASONE 4 MG/ML VIAL ONE (12:07)
[2020-10-19] MEDS ORDERED: diphenhydrAMINE INJ 50 MG/ML VIAL ONE (12:08)
[2020-10-19] MEDS ORDERED: CLINDAMYCIN 900 MG/50 ML 50 ML IV ONE (12:10)
--- NOTE | 2020-10-19 13:16 | Nuclear Medicine Report ---
PROCEDURE: Lymph Node Scintigraphy INDICATIONS: LEFT BREAST CA RADIOPHARMACEUTICAL: 0.3 mCi Millipore filtered Tc-99m sulfur colloid. TECHNIQUE: The area around the nipple was prepped and draped in a sterile fashion. Tc-99m sulfur colloid was in jected intra-dermally in the outer edge of the areola in the left breast. Images were obtained subse quently. A body contour outline was obtained. FINDINGS: There is a lymph node(s) in the ipsilateral axilla, which is marked on the skin and the images. IMPRESSION: A sentinel lymph node is identified in the ipsilateral left axilla. Reviewed by: Martin Hale MD on 10/19/2020 1:15 PM PDT Approved by: Martin Hale MD on 10/19/2020 1:15 PM PDT Station ID: [id number]
--- NOTE | 2020-10-19 13:53 | OPERATIVE REPORT ---
Operative Report - General Procedure Date: 10/19/20 Planned Procedure: Left breast lumpectomy and sentinel node biopsy Pre-Op Diagnosis: Left breast cancer Procedure Performed: Left breast lumpectomy and sentinel node biopsy Post Op Diagnosis: Same - Procedure Note Primary Surgeon: Mark Anesthesia Provider: KEN Box Anesthesia Technique: General LMA Pathology: 1. [place] node - 10 sec count TNTC - background in axilla = 11, background in room = 0 2. Additional non-sentinel node 3. Left breast mass - wire dislodged 4. Additional anterior margin Estimated Blood Loss (mL): 20 Indications: Biopsy proven left breast cancer Findings: Lesion well centered iin the specimen but marking clip not seen Complications: None apparent - Other Other Information/Narrative: After obtaining informed consent, the patient was brought to the operating room and placed in the supine position on the operating table. Following successful induction of general endotracheal anesthesia, appropriate padding of all bony prominences, and placement of appropriate monitors, the left breast was prepped and draped in the standard surgical fashion. A timeout was held per scope protocol. All elements of the surgical safety checklist were followed before, during, and after the procedure. We began the procedure with a sentinel node dissection. The site of the brigh test node had been marked in radiology with 2 skin marker axis. The neoprobe was used to identify the site of greatest uptake at level 2 in the patient's axilla. The patient is quite thin and has minimal axillary tissue. An incision was created over this area of uptake and carried through the skin and subcutaneous tissue to enter the axillary node packet. The first sentinel node was easily identified. It was mildly enlarged and firm. It was carefully dissected free from surrounding stop structures sharply, all lymphatics and vasculature were addressed with clips prior to division. The node was liberated into the field. 10-second counts are recorded. A second small lymph node was adherent to the sentinel and was and found to not be consistent with a sentinel node. It was submitted separately. Background in the axilla was checked and found to be 11. Background in the room was 0. The axillary incision was then closed in 2 layers with Vicryl and Monocryl sutures. We turned our attention to the left breast mass. The area over the mass and in the periareolar region was infiltrated with a mixture of local anesthetics to cry to field block. A periareolar incision was then created in the skin on either side of the wire and carried through the skin and subcutaneous tissue. The wire was noted to be in the subcutaneous tissue and not well lodged in the breast tissue. The retromammary bursa was not adherent to the underlying muscle. The mass was removed in a single piece in a medial to lateral fashion. It was marked with a short stitch superior, long stitch lateral, and double stitch anterior. Specimen xray revealed the lesion and associated calcifications but not the clip. An additional anterior margin was obtain and imaged. It also did not reveal any evidence of the clip. Measurements were obtained to be sure an adequate margin had been obtained around the lesion. The margin was at least 2 cm in every direction. The wound was checked for hemostasis. It was irrigated again with warm water. The wound was then closed in 2 layers with Vicryl and Monocryl sutures. All sponge, needle, and instrument counts were correct at the conclusion of the case. The patient was let awakened anesthesia without difficulty and taken to the postanesthesia care unit in good condition.
[2020-10-19] MEDS ORDERED: oxyCODONE 5 MG TABLET PO PRN (13:59)
[2020-10-19] MEDS ORDERED: IBUPROFEN 600 MG TABLET PO PRN (13:59)
[2020-10-19] MEDS ORDERED: ACETAMINOPHEN 325 MG TABLET PO PRN (13:59)
--- NOTE | 2020-10-19 15:34 | ANESTHESIA POST OP EVALUATION ---
Anesthesia Post Eval - Post Anesthesia Eval Vitals: Last Vital Signs Temp 36.4 C L 10/19/20 14:45 Pulse 12 L 10/19/20 14:45 Resp 18 10/19/20 14:45 BP 165/75 H 10/19/20 14:45 Pulse Ox 98 10/19/20 14:45 CV Function Including HR & BP: Stable Pain Control: Satisfactory Nausea & Vomiting: Negative Mental Status: Baseline Respiratory Status: Airway Patent Hydration Status: Satisfactory Anesthesia Complications: None
[2020-10-19 16:03] VITALS: BP 153/83
--- NOTE | 2020-10-20 15:16 | Mammography Report ---
DIGITAL MAMMOGRAPHY GUIDED WIRE LOCALIZATION LEFT BREAST: 10/19/2020 CLINICAL: Post wire placement. Correlation is made to exams dated: 09/09/2020 breast MRI - [facility], 08/12/2020 mammogram, 2020 ultrasound biopsy, 08/04/2020 ultrasound, 08/04/2020 mammogram, and 07/08/2020 mammogram - [facility]. A wire localization using digital mammography guidance was performed for the marker clip located in t he left breast at 5 o'clock anterior depth. The skin was prepped in the usual manner. Local anesthe tic was administered to the access site. The localization was approached from the lateral aspect. A wire was inserted into the targeted area under digital mammography guidance. IMPRESSION: WIRE LOCALIZATION Wire localization for the marker clip in the left breast at 5 o'clock anterior depth was successful. A specimen radiograph is recommended. Future imaging is recommended as follows: 02/04/2021 left mammogram and an ultrasound. This exam was interpreted at Station ID: [id number]. Zack pacheco/:10/19/2020 15:35:25 BI-RADS CATEGORY: () - Biopsy follow-up [id number] Immediate follow-up LATERALITY: (B)
--- NOTE | 2020-10-20 15:16 | Mammography Report ---
SPECIMEN LEFT BREAST: 10/19/2020 CLINICAL: Left breast specimen. Correlation is made to exams dated: 10/19/2020 localization - [facility], 09/09/2020 breast MRI - [facility], 08/12/2020 mammogram, 08/12/2020 ultrasound biopsy, 08/04/2020 ultrasound, a nd 08/04/2020 mammogram - [facility]. A surgical specimen was imaged for the previous biopsy site located in the left breast at 5 o'clock anterior depth. There are regional microcalcifications. IMPRESSION: SPECIMEN The imaged specimen does not include biopsy clip. Discussed in person with Dr. Flores at the time of th e study. Future imaging is recommended as follows: 02/04/2021 left mammogram and an ultrasound. This exam was interpreted at Station ID: [id number]. Zack pacheco/:10/20/2020 09:38:34 BI-RADS CATEGORY: () - Biopsy follow-up [id number] Immediate follow-up LATERALITY: (B)
== END 2020-10-19 08:18 | disposition home or self-care (01) ==
LOC: SDS 08:17
PROVIDERS: ATTEND Surgery
PROC: 0HBU0ZX Excision of Left Breast, Open Approach, Diagnostic (ICD-10-PCS; 2020-10-19)
PROC: 0HBU0ZZ Excision of Left Breast, Open Approach (ICD-10-PCS; principal; 2020-10-19 11:30)
DX: C50.512 Malignant neoplasm of lower-outer quadrant of left female breast (principal); Z17.0 Estrogen receptor positive status [ER+]
CPT/HCPCS: 19281; 19301; 38525; 76098; 78195; J0690; J1200; J7120

== ENCOUNTER 2020-12-18 08:20 | Outpatient (CLI) | payer MEDICARE, BC ==
--- NOTE | 2020-12-18 15:52 | DEXA Report ---
PROCEDURE: Dexa Spine and/or Hip INDICATIONS: POST MENOPAUSAL TECHNIQUE: Dual energy x-ray absorptiometry (DXA) was performed on a Trendr System. Regions measur ed are the AP Spine, femoral neck, and if needed forearm. COMPARISON: None. FINDINGS: Lumbar Spine: Bone Mineral Density 1.3 g/cm/cm,T score 1.6, normal Left Hip: Bone Mineral Density 0.9 g/cm/cm,T score -0.9, normal Left Femoral Neck: Bone Mineral Density 0.803 g/cm/cm, T score -1.7, osteopenia Impression: Osteopenia on the basis of left femoral neck density. Patients with diagnosis of osteoporosis or osteopenia should have regular bone mineral density assess ment. For those eligible for Medicare, routine testing is allowed once every 2 years. Testing frequ ency can be increased for patients who have rapidly progressing disease or for those who are receivin g medical therapy to restore bone mass. Reviewed by: Johnie Merrill MD on 12/18/2020 3:51 PM PDT Approved by: Johnie Merrill MD on 12/18/2020 3:51 PM PDT Station ID: [id number]
== END 2020-12-18 08:21 | disposition home or self-care (01) ==
LOC: DI 08:20
PROVIDERS: ATTEND Internal Medicine Hematology & Oncology
DX: Z78.0 Asymptomatic menopausal state (principal); M85.88 Other specified disorders of bone density and structure, other site

== ENCOUNTER 2021-03-27 21:09 | Emergency (ER) | payer MEDICARE, BC ==
--- NOTE | 2021-03-27 21:34 | ED Physician Documentation ---
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 No: Shortness of air, Diaphoresis, Nausea, Vomiting, General Weakness, Palpitations Similar symptoms before: Has not had sx before - Additional information Additional information: while at home at rest tonight, watching TV, patient had sudden onset midline chest squeezing sensation lasting approximately 1 minute; the pain was intense and she became lightheaded and felt as if she might pass out. The pain has resolved completely. She has h/o SD 4 years ago and she has had 3 coronary artery stents. Review of Systems Constitutional: denies: Fever, Chills, Sweats Cardiac: reports: Chest pain / pressure. denies: Palpitations, Pedal edema, Calf pain Respiratory: reports: Reviewed and negative GI: reports: Reviewed and negative Musculoskeletal: reports: Reviewed and negative Neurologic: reports: Generalized weakness (during the episode of chest pain but resolved). denies: Focal weakness, Numbness PD PAST MEDICAL HISTORY - Past Medical History Cardiovascular: Hypertension, SD, Other (stent x3 4 yrs ago) Respiratory: None Endocrine/Autoimmune: None GI: None ASSESSMENT COUNSELOR: None : None HEENT: Other Psych: Depression, Anxiety, Panic attacks, Claustrophobia Musculoskeletal: Osteoarthritis Derm: Eczema, Other - Past Surgical History Past Surgical History: Yes General: Cholecystectomy, Appendectomy /ASSESSMENT COUNSELOR: Hysterectomy Cardiovascular: Coronary stent HEENT: Cataracts, Tonsil/Adenoidectomy - Present Medications Home Medications: Ambulatory Orders Medication Instructions Recorded Confirmed Aspirin 81 mg PO DAILY 10/10/16 03/16/21 Atorvastatin Calcium 20 mg PO DAILY 10/10/16 03/16/21 Cholecalciferol [Vitamin D3] 2,000 unit ORAL DAILY 10/10/16 03/16/21 lisinopriL [Zestril] 10 mg PO DAILY 01/14/17 03/16/21 Potassium Gluconate 99 mg PO DAILY 01/05/21 03/16/21 - Allergies Allergies/Adverse Reactions: Allergies Allergy/AdvReac Type Severity Reaction Status Date / Time erythromycin base Allergy Unknown Verified 03/27/21 21:19 erythromycin lactobionate * Allergy Unknown Verified 03/27/21 21:19 [From Erythrocin] Penicillins Allergy Respiratory Verified 03/27/21 21:19 Sulfa (Sulfonamide Allergy Rash Verified 03/27/21 21:19 Antibiotics) clindamycin AdvReac Itching Verified 03/27/21 21:19 - Social History Does the pt smoke?: No Smoking Status: Never smoker Does the pt drink ETOH?: No Does the pt have substance abuse?: No - Immunizations Immunizations are current?: Yes - POLST Patient has POLST: No PD ED PE NORMAL - Vitals Vital signs reviewed: Yes - General General: Alert and oriented X 3, No acute distress, Well developed/nourished - HEENT HEENT: Moist mucous membranes - Neck Neck: Supple, no meningeal sign - Cardiac Cardiac: RRR, No murmur, No gallop, No rub - Respiratory Respiratory: No respiratory distress, Clear bilaterally - Abdomen Abdomen: Soft, Non tender - Extremities Extremities: No edema Results - Vitals Vitals: Vital Signs - 24 hr 03/27/21 03/27/21 03/27/21 21:13 21:26 23:19 Temperature 36.1 C L Heart Rate 113 H 94 71 Respiratory 20 13 12 Rate Blood Pressure 195/92 H 159/121 H 148/71 H O2 Saturation 98 100 98 Oxygen O2 Source Room air - EKG (time done) No standard instances Rate: Rate (enter#) (116), Tachy Rhythm: Sinus tachycardia [place]: LAD Intervals: Normal [place] QRS: Normal Ischemia: Normal ST segments, Q waves (III, aVF) Compare to prior EKG: Unchanged from prior EKG (05/10/19) - Labs Labs: Laboratory Tests 03/27/21 03/27/21 03/27/21 21:25 21:25 21:25 WBC 7.7 RBC 5.52 H Hgb 15.8 Hct 47.6 H MCV 86.2 MCH 28.6 MCHC 33.2 RDW 13.3 Plt Count 211 MPV 10.2 Neut # (Auto) 4.4 Lymph # (Auto) 2.0 [place] # (Auto) 0.8 Eos # (Auto) 0.4 Baso # (Auto) 0.1 Absolute Nucleated RBC 0.00 Nucleated RBC % 0.0 Sodium 138 Potassium 3.5 Chloride 100 L Carbon Dioxide 27 Anion Gap 11.0 BUN 17 Creatinine 0.7 Estimated GFR (MDRD) 81 L Glucose 137 H Calcium 9.3 Total Bilirubin 0.7 AST 25 ALT 22 Alkaline Phosphatase 73 Troponin I High Sens 5.5 Total Protein 7.8 Albumin 4.5 Globulin 3.3 Albumin/Globulin Ratio 1.4 Lipase 71 H - Rads (name of study) chest xray Radiology: Prelim report reviewed, See rad report PD MEDICAL DECISION MAKING - ED course Complexity details: reviewed old records, reviewed results, re-evaluated patient, considered differential, d/w patient ED course: presents to ED after chest pain that lasted approximately 1 minute, asymptomatic by the time of ED presentation. No concerning findings on EKG, blood tests (including normal high sensitivity troponin), CXR (possible atelectasis and possible small left pleural effusion). Results reviewed with patient. Return precautions discussed Departure - Departure Disposition: 01 Home, Self Care Clinical Impression: Chest pain Qualifiers: Chest pain type: unspecified Qualified Code(s): R07.9 - Chest pain, unspecified Condition: Good Instructions: ED Chest Pain Atypical Unkn Cause Follow-Up: Natalie Mo MD [Primary Care Provider] - Within 1 week Comments: Your test results are unremarkable; there is no evidence at this time of a serious medical condition such as angina or acute coronary syndrome (heart attack). As we discussed, you will need to follow up with your primary care provider, next available appointment; further testing might be needed. Discharge Date/Time: 03/28/21 00:01
[2021-03-27 21:46] LABS: BASOPHILS # (AUTO) 0.1 10^3/uL (0.0-0.1); BASOPHILS % (AUTO) 0.9 %; EOSINOPHILS # (AUTO) 0.4 10^3/uL (0.0-0.7); EOSINOPHILS % (AUTO) 5.4 %; HCT - HEMATOCRIT 47.6 % (37.0-47.0); HGB - HEMOGLOBIN 15.8 g/dL (12.0-16.0); MEAN CORPUSCULAR HEMOGLOBIN 28.6 pg (27.0-31.0); MEAN CORPUSCULAR HGB CONC 33.2 g/dL (32.0-36.0); MEAN CORPUSCULAR VOLUME 86.2 fL (81.0-99.0); MEAN PLATELET VOLUME 10.2 fL (7.9-10.8); MONOCYTES # (AUTO) 0.8 10^3/uL (0.0-1.0); MONOCYTES % (AUTO) 10.3 %; NEUTROPHILS # (AUTO) 4.4 10^3/uL (1.5-6.6); NEUTROPHILS % (AUTO) 57.1 %; PLT - PLATELET COUNT 211 10^3/uL (130-450); RED BLOOD COUNT 5.52 10^6/uL (4.20-5.40); RED CELL DISTRIBUTION WIDTH 13.3 % (12.0-15.0); WHITE BLOOD COUNT 7.7 x10^3/uL (4.8-10.8)
--- NOTE | 2021-03-27 22:20 | XRAY Report ---
PROCEDURE: Chest 1 View X-Ray INDICATIONS: Chest pain TECHNIQUE: One view of the chest was acquired. COMPARISON: 11/29/2017 FINDINGS: Surgical changes and devices: Surgical clips noted in the left axilla. Lungs and pleura: Chronic eventration of the right hemidiaphragm. Streaky bibasilar opacities more p ronounced on the left. Mild hazy opacities of the left costophrenic angle suggestive of a small pleur al effusion. No pneumothorax. Mediastinum: Mediastinal contours appear normal. Heart size is normal. Bones and chest wall: No suspicious bony lesions. Overlying soft tissues appear unremarkable. IMPRESSION: Streaky bibasilar opacities likely representing atelectasis. Possible small left pleural effusion. No focal consolidations. Reviewed by: Darnell Eller MD on 03/27/2021 10:19 PM PST Approved by: Darnell Eller MD on 03/27/2021 10:19 PM PST Station ID: [id number]
[2021-03-27 22:33] LABS: ALBUMIN 4.5 g/dL (3.2-5.5); ALBUMIN/GLOBULIN RATIO 1.4 (1.0-2.2); BILIRUBIN,TOTAL 0.7 mg/dL (0.2-1.0); CREATININE 0.7 mg/dL (0.4-1.0); TOTAL PROTEIN 7.8 g/dL (6.7-8.2)
[2021-03-27 22:44] LABS: CALCIUM 9.3 mg/dL (8.5-10.3); POTASSIUM 3.5 mmol/L (3.5-5.0)
[2021-03-27 23:26] VITALS: BP 148/71
== END 2021-03-28 00:01 | disposition home or self-care (01) ==
LOC: ED 21:09
DX: R07.89 Other chest pain (principal); R00.0 Tachycardia, unspecified; I25.10 Atherosclerotic heart disease of native coronary artery without angina pectoris; I25.2 Old myocardial infarction; Z95.5 Presence of coronary angioplasty implant and graft; I10 Essential (primary) hypertension; Z79.82 Long term (current) use of aspirin
CPT/HCPCS: 36415; 80053; 83690; 84484; 85025; 93005; 99284

== ENCOUNTER 2021-05-24 08:00 | Outpatient (CLI) | payer MEDICARE, BC ==
[2021-05-24 16:25] LABS: CALCIUM 9.3 mg/dL (8.5-10.3); CREATININE 0.8 mg/dL (0.4-1.0); POTASSIUM 3.8 mmol/L (3.5-5.0)
== END 2021-05-24 23:59 ==
LOC: LAB.R 08:00
PROVIDERS: ATTEND Internal Medicine
DX: E87.6 Hypokalemia (principal)
CPT/HCPCS: 80048

== ENCOUNTER 2021-06-15 08:00 | Outpatient (CLI) | payer MEDICARE, BC ==
[2021-06-15 16:41] LABS: CALCIUM 9.1 mg/dL (8.5-10.3); CREATININE 0.8 mg/dL (0.4-1.0); POTASSIUM 3.5 mmol/L (3.5-5.0)
== END 2021-06-15 23:59 | disposition home or self-care (01) ==
LOC: LAB.R 08:00
PROVIDERS: ATTEND Internal Medicine
DX: Z79.899 Other long term (current) drug therapy (principal)
CPT/HCPCS: 80048

== ENCOUNTER 2021-08-02 01:54 | Emergency (ER) | payer MEDICARE, BC ==
--- OUTSIDE RECORDS SUMMARY | 2021-08-02 02:06 | EXTERNAL MEDICAL SUMMARY RPT | Continuity of Care Document ---
:1945 Author Organization [facility] Address [address] [place] [address] Phone Care Team Providers Name Role Phone Dannhaur Unavailable Unavailable Allergies No information. Encounters No information. Medications No information. Problems date description facility [id number] Other abnormal and inconclusive finding s on diagnostic [facility] imagi [id number] Malignant neoplasm of unspecified site of unspecified [facility] female Results No information.
[2021-08-02] MEDS ORDERED: METOPROLOL TARTRATE 50 MG TABLET PO STA (02:14)
--- NOTE | 2021-08-02 02:16 | ED Physician Documentation ---
History of Present Illness - Stated complaint Stated Complaint: Palpitations - Chief complaint Chief Complaint: Cardiac - Additonal information Additional information: The patient comes to the emergency department chief complaint of "racing heart". She states that she has a history of palpitations and has been wearing an event monitor to be further evaluated for this. She states she gets several episodes per day where she feels as though her heart is racing and usually they last for a couple of minutes. Patient states that today, the room away could be from sleep to the sensation that her heart was racing again. She did not check the actual heart rate and denies any chest pain, shortness of breath, lightheadedness, or diaphoresis. She states that she came in because she could not seem to get her heart to slow down and was concerned about this. The patient states it feels a little better now. She is not currently on any medications for the heart. She does not have any underlying rhythm abnormalities that she knows of, and states her doctors have not figured out why her heart is racing yet. No other complaints at this time. Review of Systems Ten Systems: 10 systems reviewed and negative Constitutional: reports: Reviewed and negative Eyes: reports: Reviewed and negative Ears: reports: Reviewed and negative Nose: reports: Reviewed and negative Throat: reports: Reviewed and negative Cardiac: reports: Palpitations, Reviewed and negative Respiratory: reports: Reviewed and negative GI: reports: Reviewed and negative : reports: Reviewed and negative Skin: reports: Reviewed and negative Musculoskeletal: reports: Reviewed and negative Neurologic: reports: Reviewed and negative Psychiatric: reports: Reviewed and negative Endocrine: reports: Reviewed and negative Immunocompromised: reports: Reviewed and negative PD PAST MEDICAL HISTORY - Past Medical History Past Medical History: Yes Cardiovascular: Hypertension, MD, Other Respiratory: None Endocrine/Autoimmune: None GI: None FINANCIAL REP: None : None HEENT: Other Psych: Depression, Anxiety, Panic attacks, Claustrophobia Musculoskeletal: Osteoarthritis Derm: Eczema, Other - Past Surgical History Past Surgical History: Yes General: Cholecystectomy, Appendectomy /FINANCIAL REP: Hysterectomy Cardiovascular: Coronary stent HEENT: Cataracts, Tonsil/Adenoidectomy - Present Medications Home Medications: Ambulatory Orders Medication Instructions Recorded Confirmed Aspirin 81 mg PO DAILY 10/10/16 08/02/21 lisinopriL [Zestril] 10 mg PO DAILY 01/14/17 08/02/21 Potassium Chloride 20 meq PO DAILY 08/02/21 08/02/21 hydroCHLOROthiazide [Hydrodiuril] 12.5 mg PO DAILY 08/02/21 08/02/21 - Allergies Allergies/Adverse Reactions: Allergies Allergy/AdvReac Type Severity Reaction Status Date / Time erythromycin base Allergy Unknown Verified 08/02/21 02:06 erythromycin lactobionate * Allergy Unknown Verified 08/02/21 02:06 [From Erythrocin] Penicillins Allergy Respiratory Verified 08/02/21 02:06 Sulfa (Sulfonamide Allergy Rash Verified 08/02/21 02:06 Antibiotics) clindamycin AdvReac Itching Verified 08/02/21 02:06 - Social History Does the pt smoke?: No Smoking Status: Never smoker Does the pt drink ETOH?: No Does the pt have substance abuse?: No - Immunizations Immunizations are current?: Yes - POLST Patient has POLST: No PD ED PE NORMAL - Vitals Vital signs reviewed: Yes - General General: Alert and oriented X 3, No acute distress, Well developed/nourished - HEENT HEENT: Atraumatic, PERRL, EOMI, Moist mucous membranes - Neck Neck: Supple, no meningeal sign - Cardiac Cardiac: RRR, No murmur, Strong equal pulses - Respiratory Respiratory: No respiratory distress, Clear bilaterally - Abdomen Abdomen: Soft, Non tender, Non distended - Derm Derm: Normal color, Warm and dry, No rash - Extremities Extremities: No deformity, No edema - Neuro Neuro: Alert and oriented X 3, 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, Normal speech - Psych Psych: Normal mood, Normal affect Results - Vitals Vitals: Vital Signs - 24 hr 08/02/21 08/02/21 08/02/21 02:00 02:09 02:35 Temperature 36.2 C L Heart Rate 89 90 71 Respiratory 18 13 12 Rate Blood Pressure 190/84 H 181/92 H 167/80 H O2 Saturation 98 96 99 08/02/21 03:00 Temperature 36.6 C Heart Rate 74 Respiratory 14 Rate Blood Pressure 157/70 H O2 Saturation 100 Oxygen O2 Source Room air - EKG (time done) 0205 Rate: Rate (enter#) (87) Rhythm: NSR [place]: Normal Intervals: Normal [place] QRS: Normal Ischemia: Normal ST segments Compare to prior EKG: Old EKG unavailable Computer interpretation: Agree with computer - Labs Labs: Laboratory Tests 08/02/21 08/02/21 08/02/21 02:20 02:20 02:20 WBC 6.5 RBC 5.26 Hgb 15.0 Hct 44.9 MCV 85.4 MCH 28.5 MCHC 33.4 RDW 13.4 Plt Count 157 MPV 10.9 H Neut # (Auto) 3.9 Lymph # (Auto) 1.6 [place] # (Auto) 0.7 Eos # (Auto) 0.3 Baso # (Auto) 0.1 Absolute Nucleated RBC 0.00 Nucleated RBC % 0.0 Manual Slide Review Indicated WBC Morphology NORMAL APPEARANCE Platelet Estimate NORMAL (130-450,000) Platelet Morphology PLATELET CLUMPING RBC Morph Micro Appear NORMAL APPEARANCE Sodium 139 Potassium 3.9 Chloride 102 Carbon Dioxide 26 Anion Gap 11.0 BUN 18 Creatinine 0.9 Estimated GFR (MDRD) 61 L Glucose 167 H Calcium 9.0 Total Bilirubin 0.5 AST 23 ALT 18 Alkaline Phosphatase 76 Troponin I High Sens 6.4 Total Protein 7.2 Albumin 4.2 Globulin 3.0 Albumin/Globulin Ratio 1.4 Lipase 89 H - Rads (name of study) CXR Radiology: Final report received, EMP read indepedently, See rad report (neg) PD MEDICAL DECISION MAKING - ED course Complexity details: reviewed results, re-evaluated patient, considered differential, d/w patient ED course: Patient was worked up with labs which were unremarkable. Her EKG showed normal sinus rhythm and monitor reading also demonstrated normal sinus rhythm throughout her entire stay in the emergency department. Patient is stable for discharge home. We have discussed home management symptoms as well as the usual indications for return. Departure - Departure Disposition: 01 Home, Self Care Clinical Impression: Palpitations Condition: Stable Instructions: ED Palpitations Comments: Your labs look good. Your heart rate and rhythm have been normal here in the emergency department, and it is not clear what exactly is happening when you feel that your heart is racing. 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 If you feel that your heart is racing and you become faint or develop chest pain or shortness of breath, you should return to the emergency department immediately. Discharge Date/Time: 08/02/21 03:05
[2021-08-02 02:30] LABS: BASOPHILS # (AUTO) 0.1 10^3/uL (0.0-0.1); BASOPHILS % (AUTO) 0.9 %; EOSINOPHILS # (AUTO) 0.3 10^3/uL (0.0-0.7); EOSINOPHILS % (AUTO) 4.3 %; HCT - HEMATOCRIT 44.9 % (37.0-47.0); LYMPHOCYTES # (AUTO) 1.6 10^3/uL (1.5-3.5); LYMPHOCYTES % (AUTO) 24.2 %; MEAN CORPUSCULAR HEMOGLOBIN 28.5 pg (27.0-31.0); MEAN CORPUSCULAR HGB CONC 33.4 g/dL (32.0-36.0); MEAN CORPUSCULAR VOLUME 85.4 fL (81.0-99.0); MEAN PLATELET VOLUME 10.9 fL (7.9-10.8); MONOCYTES # (AUTO) 0.7 10^3/uL (0.0-1.0); MONOCYTES % (AUTO) 10.4 %; NEUTROPHILS # (AUTO) 3.9 10^3/uL (1.5-6.6); NEUTROPHILS % (AUTO) 59.9 %; PLT - PLATELET COUNT 157 10^3/uL (130-450); RED BLOOD COUNT 5.26 10^6/uL (4.20-5.40); RED CELL DISTRIBUTION WIDTH 13.4 % (12.0-15.0); WHITE BLOOD COUNT 6.5 x10^3/uL (4.8-10.8)
[2021-08-02 02:51] LABS: ALBUMIN 4.2 g/dL (3.2-5.5); ALBUMIN/GLOBULIN RATIO 1.4 (1.0-2.2); BILIRUBIN,TOTAL 0.5 mg/dL (0.2-1.0); CREATININE 0.9 mg/dL (0.4-1.0); POTASSIUM 3.9 mmol/L (3.5-5.0); TOTAL PROTEIN 7.2 g/dL (6.7-8.2)
[2021-08-02 02:55] LABS: PLATELET ESTIMATE, MANUAL NORMAL (130-450,000) (NORMAL); PLATELET MORPHOLOGY PLATELET CLUMPING (NORMAL); RBC MORPHOLOGY (MULTIPLE) NORMAL APPEARANCE (NORMAL); SLIDE REVIEW? Indicated; WBC MORPHOLOGY (MULTIPLE) NORMAL APPEARANCE (NORMAL)
[2021-08-02 03:06] VITALS: BP 157/70
--- NOTE | 2021-08-02 07:37 | XRAY Report ---
PROCEDURE: Chest 1 View X-Ray INDICATIONS: Chest pain TECHNIQUE: One view of the chest was acquired. COMPARISON: 03/27/2021 FINDINGS: Surgical changes and devices: Left axillary surgical clips. Temporary monitor projects over the left lung. Lungs and pleura: No pleural effusions or pneumothorax. Lungs are clear. Mediastinum: Mediastinal contours appear normal. Heart size is normal. Bones and chest wall: No suspicious bony lesions. Overlying soft tissues appear unremarkable. IMPRESSION: No acute cardiopulmonary disease process. Reviewed by: Jennifer Anaya MD, PhD on 08/02/2021 7:36 AM PDT Approved by: Jennifer Anaya MD, PhD on 08/02/2021 7:36 AM PDT Station ID: [id number]
== END 2021-08-02 03:05 | disposition home or self-care (01) ==
LOC: ED 01:54
DX: R00.2 Palpitations (principal); I10 Essential (primary) hypertension; Z95.5 Presence of coronary angioplasty implant and graft; Z79.82 Long term (current) use of aspirin
CPT/HCPCS: 36415; 71045; 80053; 83690; 84484; 85025; 93005; 99283; 99284; A9270

== ENCOUNTER 2021-10-12 08:00 | Outpatient (CLI) | payer MEDICARE, BC ==
[2021-10-12 15:54] LABS: BASOPHILS # (AUTO) 0.1 10^3/uL (0.0-0.1); BASOPHILS % (AUTO) 0.9 %; EOSINOPHILS # (AUTO) 0.2 10^3/uL (0.0-0.7); EOSINOPHILS % (AUTO) 3.8 %; HCT - HEMATOCRIT 47.5 % (37.0-47.0); HGB - HEMOGLOBIN 15.5 g/dL (12.0-16.0); LYMPHOCYTES # (AUTO) 1.2 10^3/uL (1.5-3.5); MEAN CORPUSCULAR HEMOGLOBIN 28.4 pg (27.0-31.0); MEAN CORPUSCULAR HGB CONC 32.6 g/dL (32.0-36.0); MEAN CORPUSCULAR VOLUME 87.2 fL (81.0-99.0); MEAN PLATELET VOLUME 10.8 fL (7.9-10.8); MONOCYTES # (AUTO) 0.4 10^3/uL (0.0-1.0); MONOCYTES % (AUTO) 7.3 %; NEUTROPHILS # (AUTO) 3.7 10^3/uL (1.5-6.6); NEUTROPHILS % (AUTO) 66.8 %; PLT - PLATELET COUNT 191 10^3/uL (130-450); RED BLOOD COUNT 5.45 10^6/uL (4.20-5.40); RED CELL DISTRIBUTION WIDTH 13.7 % (12.0-15.0); WHITE BLOOD COUNT 5.5 x10^3/uL (4.8-10.8)
[2021-10-12 16:04] LABS: CREATININE,URINE 201.8 mg/dL; MICROALBUMIN,URINE 0.6 mg/dL (0-300.0)
[2021-10-12 16:10] LABS: ALBUMIN 4.4 g/dL (3.2-5.5); ALBUMIN/GLOBULIN RATIO 1.3 (1.0-2.2); ALKALINE PHOSPHATASE 75 IU/L (42-121); ALT ALANINE AMINOTRANSFERASE 24 IU/L (10-60); AST ASPARTATE AMINOTRANSFERASE 23 IU/L (10-42); BILIRUBIN,TOTAL 0.9 mg/dL (0.2-1.0); BUN - BLOOD UREA NITROGEN 14 mg/dL (6-20); CALCIUM 9.6 mg/dL (8.5-10.3); CARBON DIOXIDE - CO2 30 mmol/L (21-32); CHLORIDE 97 mmol/L (101-111); CHOL/HDL RATIO 3.2 (<4.4); CHOLESTEROL 139 mg/dL; CREATININE 0.9 mg/dL (0.4-1.0); GFR - MDRD 61 (>89); GLUCOSE 132 mg/dL (70-100); HDL CHOLESTEROL 44 mg/dL; LDL CHOLESTEROL,CALCULATED 73 mg/dL; LDL/HDL RATIO 1.7 (<4.4); POTASSIUM 3.9 mmol/L (3.5-5.0); SODIUM 138 mmol/L (135-145); TOTAL PROTEIN 7.7 g/dL (6.7-8.2); TRIGLYCERIDES 110 mg/dL; VLDL CHOLESTEROL 22 mg/dL
[2021-10-12 20:15] LABS: ESTIMATED AVERAGE GLUCOSE 148 mg/dL (70-100); HEMOGLOBIN A1c% 6.8 % (4.27-6.07)
== END 2021-10-12 23:59 | disposition home or self-care (01) ==
LOC: LAB.R 08:00
PROVIDERS: ATTEND Internal Medicine
DX: Z00.00 Encounter for general adult medical examination without abnormal findings (principal); C44.91 Basal cell carcinoma of skin, unspecified; I25.10 Atherosclerotic heart disease of native coronary artery without angina pectoris; E11.9 Type 2 diabetes mellitus without complications; K76.0 Fatty (change of) liver, not elsewhere classified; C50.919 Malignant neoplasm of unspecified site of unspecified female breast; Z86.010 Personal history of colon polyps; E78.5 Hyperlipidemia, unspecified; I10 Essential (primary) hypertension; Z79.899 Other long term (current) drug therapy
CPT/HCPCS: 80053; 80061; 82043; 82306; 82570; 83036; 83721; 84443; 85025

== ENCOUNTER 2021-12-27 08:00 | Outpatient (CLI) | payer MEDICARE, BC ==
[2021-12-27 16:57] LABS: BASOPHILS # (AUTO) 0.1 10^3/uL (0.0-0.1); BASOPHILS % (AUTO) 0.8 %; EOSINOPHILS # (AUTO) 0.3 10^3/uL (0.0-0.7); EOSINOPHILS % (AUTO) 4.1 %; HGB - HEMOGLOBIN 14.9 g/dL (12.0-16.0); LYMPHOCYTES # (AUTO) 1.3 10^3/uL (1.5-3.5); LYMPHOCYTES % (AUTO) 18.3 %; MEAN CORPUSCULAR HEMOGLOBIN 27.5 pg (27.0-31.0); MEAN CORPUSCULAR HGB CONC 31.7 g/dL (32.0-36.0); MEAN CORPUSCULAR VOLUME 86.7 fL (81.0-99.0); MEAN PLATELET VOLUME 11.4 fL (7.9-10.8); MONOCYTES # (AUTO) 0.6 10^3/uL (0.0-1.0); NEUTROPHILS % (AUTO) 68.5 %; PLT - PLATELET COUNT 214 10^3/uL (130-450); RED BLOOD COUNT 5.42 10^6/uL (4.20-5.40); RED CELL DISTRIBUTION WIDTH 13.2 % (12.0-15.0); WHITE BLOOD COUNT 7.2 x10^3/uL (4.8-10.8)
[2021-12-27 17:16] LABS: ALBUMIN 4.5 g/dL (3.2-5.5); ALBUMIN/GLOBULIN RATIO 1.7 (1.0-2.2); BILIRUBIN,TOTAL 0.6 mg/dL (0.2-1.0); CALCIUM 9.5 mg/dL (8.5-10.3); POTASSIUM 4.4 mmol/L (3.5-5.0); TOTAL PROTEIN 7.2 g/dL (6.7-8.2)
[2021-12-27 21:26] LABS: ESTIMATED AVERAGE GLUCOSE 140 mg/dL (70-100); HEMOGLOBIN A1c% 6.5 % (4.27-6.07)
== END 2021-12-27 23:59 | disposition home or self-care (01) ==
LOC: LAB.R 08:00
PROVIDERS: ATTEND Internal Medicine
DX: Z01.812 Encounter for preprocedural laboratory examination (principal); E11.9 Type 2 diabetes mellitus without complications; I25.10 Atherosclerotic heart disease of native coronary artery without angina pectoris; I10 Essential (primary) hypertension; Z79.899 Other long term (current) drug therapy
CPT/HCPCS: 80053; 83036; 85025

== ENCOUNTER 2022-09-05 10:06 | Outpatient (CLI) | payer MEDICARE, BC ==
--- NOTE | 2022-09-06 09:33 | Mammography Report ---
UNILATERAL RIGHT DIGITAL DIAGNOSTIC MAMMOGRAM 3D/2D: 09/05/2022 CLINICAL: Patient returns today to evaluate an asymmetry in the right breast. Comparison is made to exams dated: 08/04/2022 mammogram, 07/20/2021 mammogram - [facility], localization, 08/12/2020 mammogram, and 08/04/2020 mammogram - [facility]. There are scattered areas of fibroglandular density in the right breast (category b / 25%-50% glandul ar tissue). There is a benign asymmetry in the right breast posterior depth lateral region seen on the craniocaud al view only. No other significant masses or calcifications are seen in the breast. Upon further review of XCCL images from 2016 and more remotely, this is stable. IMPRESSION: BENIGN There is no mammographic evidence of malignancy. Return to annual mammogram screening schedule is rec ommended. This exam was interpreted at Station ID: [id number]. NOTE: For mammograms, a report in lay terms will be sent to the patient. Approximately 15% of breast malignancies will not be visualized mammographically. In the management of a palpable breast mass, a negative mammogram must not discourage biopsy of a clinically suspicious lesion. Electronically Signed By: Taras George M.D. lc/:09/05/2022 11:36:58 ACR BI-RADS Category 2: Benign Finding(s) 3342F PARENCHYMAL PATTERN: (A) - The breast(s) demonstrate(s) scattered fibroglandular densities. BI-RADS CATEGORY: (2) - 2 Mammogram [id number] return to screening LATERALITY: (B)
== END 2022-09-05 10:07 | disposition home or self-care (01) ==
LOC: DI 10:06
PROVIDERS: ATTEND Internal Medicine
DX: R92.8 Other abnormal and inconclusive findings on diagnostic imaging of breast (principal)

== ENCOUNTER 2022-11-24 16:01 | Emergency (ER) | payer MEDICARE, BC ==
[2022-11-24] MEDS ORDERED: SODIUM CHLORIDE 0.9% 1,000 ML IV STA (16:50)
--- NOTE | 2022-11-24 16:50 | ED Physician Documentation ---
History of Present Illness - Stated complaint Stated Complaint: HIGH HEART RATE - Chief complaint Chief Complaint: Cardiac - History obtained from History obtained from: Patient - Additonal information Additional information: 77-year-old woman with history of heart attack. No history of arrhythmias. In fact she was worked up for arrhythmias a few years ago due to palpitations with negative event monitor. That was about 3 years ago. Today she was outside weeding. When she came in she laid down to take a nap and awoke from the nap with rapid palpitations. Just feeling like her heart was racing. No pain with it per se. She is wearing a more recent Apple Watch did not give her any alarms. Denies pedal edema or calf pain. No shortness of breath. 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 : None HEENT: Other Psych: Depression, Anxiety, Panic attacks, Claustrophobia Musculoskeletal: Osteoarthritis Derm: Eczema, Other - Past Surgical History Past Surgical History: Yes General: Cholecystectomy, Appendectomy /NETBACKUP ENGINEER: Hysterectomy Cardiovascular: Coronary stent HEENT: Cataracts, Tonsil/Adenoidectomy - Present Medications Home Medications: Ambulatory Orders Medication Instructions Recorded Confirmed Aspirin 81 mg PO DAILY 10/10/16 11/24/22 lisinopriL [Zestril] 5 mg PO DAILY 01/14/17 11/24/22 Potassium Chloride 20 meq PO DAILY 08/02/21 11/24/22 hydroCHLOROthiazide [Hydrodiuril] 12.5 mg PO DAILY 08/02/21 11/24/22 Atorvastatin Calcium 20 mg PO DAILY 10/19/22 11/24/22 Calcium Carbonate [Calcium] 1,200 mg PO DAILY 10/19/22 11/24/22 Cholecalciferol (Vitamin D3) 2,000 unit PO DAILY 10/19/22 11/24/22 [Vitamin D3] Turmeric Root Extract [Turmeric] 500 mg PO DAILY 10/19/22 10/19/22 Metformin HCl [Metformin ER 500 mg PO DAILY 11/24/22 11/24/22 Osmotic] - Allergies Allergies/Adverse Reactions: Allergies Allergy/AdvReac Type Severity Reaction Status Date / Time erythromycin base Allergy Unknown Verified 11/24/22 16:09 erythromycin lactobionate * Allergy Unknown Verified 11/24/22 16:09 [From Erythrocin] Penicillins Allergy Respiratory Verified 11/24/22 16:09 Sulfa (Sulfonamide Allergy Rash Verified 11/24/22 16:09 Antibiotics) clindamycin AdvReac Itching Verified 11/24/22 16:09 - Social History Does the pt smoke?: No Smoking Status: Never smoker Does the pt drink ETOH?: No Does the pt have substance abuse?: No - Immunizations Immunizations are current?: Yes - POLST Patient has POLST: No PD ED PE NORMAL - Vitals Vital signs reviewed: Yes - General General: Alert and oriented X 3, No acute distress - Cardiac Cardiac: No murmur, Other (Mild resting tachycardia, regular) - Respiratory Respiratory: No respiratory distress, Clear bilaterally - Extremities Extremities: No edema, No calf tenderness / cord - Neuro Neuro: Alert and oriented X 3, Normal speech Results - Vitals Vitals: Vital Signs - 24 hr 11/24/22 11/24/22 16:09 16:59 Temperature 36.5 C Heart Rate 113 H 102 H Respiratory 16 16 Rate Blood Pressure 160/88 H 180/80 H O2 Saturation 98 98 If not protocol 0 : Oxygen Flow, liters/minute Oxygen O2 Source Room air - EKG (time done) 1626 EKG releavant findings:: EKG personally interpreted by author of this note. Relevant findings are: Rate: Rate (enter#) (98) Rhythm: NSR [place]: Normal Intervals: Prolonged MT QRS: LVH Ischemia: Q waves. No: ST elevation c/w ischemia Computer interpretation: Agree with computer - Labs Labs: Laboratory Tests 11/24/22 11/24/22 16:59 16:59 WBC 7.3 RBC 5.53 H Hgb 15.2 Hct 47.7 H MCV 86.3 MCH 27.5 MCHC 31.9 L RDW 13.4 Plt Count 210 MPV 10.0 Neut # (Auto) 4.8 Lymph # (Auto) 1.5 [place] # (Auto) 0.6 Eos # (Auto) 0.3 Baso # (Auto) 0.1 Absolute Nucleated RBC 0.00 Nucleated RBC % 0.0 Sodium 138 Potassium 3.3 L Chloride 100 L Carbon Dioxide 32 Anion Gap 6.0 BUN 14 Creatinine 0.8 Estimated GFR (MDRD) 70 L Glucose 165 H Calcium 9.4 Magnesium 1.7 Troponin I High Sens 6.4 PD Medical Decision Making - ED course ED course: 77-year-old woman with history of coronary disease seen for rapid palpitations that are painless. No ectopy on the monitor here. She did have a mild resting tachycardia. No symptoms to suggest PE. Nonischemic EKG. Troponin normal/negative. CBC normal. Mild hypokalemia on BMP repleted orally. This started after hard day in the garden suspect she was mildly dehydrated. Heart rate did improve with IV fluids. Departure - Departure Disposition: 01 Home, Self Care Clinical Impression: Heart palpitations, Hypokalemia Condition: Stable Instructions: ED Palpitations Comments: If symptoms are persistent, talk with your pest locator about repeating the event monitor since its been a few years. Otherwise your work-up was aura l/negative and heart rate did improve with IV fluids which would be suggestive of may be just overdoing it in the garden today with dehydration. Return if worse. Drink plenty fluids and rest tonight. Forms: PCP List
[2022-11-24 17:02] LABS: BASOPHILS # (AUTO) 0.1 10^3/uL (0.0-0.1); BASOPHILS % (AUTO) 1.1 %; EOSINOPHILS # (AUTO) 0.3 10^3/uL (0.0-0.7); EOSINOPHILS % (AUTO) 3.7 %; HCT - HEMATOCRIT 47.7 % (37.0-47.0); HGB - HEMOGLOBIN 15.2 g/dL (12.0-16.0); LYMPHOCYTES # (AUTO) 1.5 10^3/uL (1.5-3.5); MEAN CORPUSCULAR HEMOGLOBIN 27.5 pg (27.0-31.0); MEAN CORPUSCULAR HGB CONC 31.9 g/dL (32.0-36.0); MEAN CORPUSCULAR VOLUME 86.3 fL (81.0-99.0); MONOCYTES # (AUTO) 0.6 10^3/uL (0.0-1.0); MONOCYTES % (AUTO) 8.5 %; NEUTROPHILS # (AUTO) 4.8 10^3/uL (1.5-6.6); NEUTROPHILS % (AUTO) 65.4 %; PLT - PLATELET COUNT 210 10^3/uL (130-450); RED BLOOD COUNT 5.53 10^6/uL (4.20-5.40); RED CELL DISTRIBUTION WIDTH 13.4 % (12.0-15.0); WHITE BLOOD COUNT 7.3 x10^3/uL (4.8-10.8)
[2022-11-24 17:27] LABS: CALCIUM 9.4 mg/dL (8.5-10.3); CREATININE 0.8 mg/dL (0.6-1.3); MAGNESIUM 1.7 mg/dL (1.7-2.3); POTASSIUM 3.3 mmol/L (3.5-4.5)
[2022-11-24 17:28] LABS: TROPONIN I HIGH SENSITIVITY 6.4 ng/L (2.3-14.8)
[2022-11-24] MEDS ORDERED: POTASSIUM BICARB 25 MEQ TABLET PO STA (18:07)
[2022-11-24 18:15] VITALS: BP 167/78; O2SAT 100
== END 2022-11-24 18:16 | disposition home or self-care (01) ==
LOC: ED 16:01
DX: R00.2 Palpitations (principal); E87.6 Hypokalemia
CPT/HCPCS: 36415; 80048; 83735; 84484; 85025; 93005; 96360; 99283; 99284; A9270

== ENCOUNTER 2023-03-24 07:55 | Outpatient (CLI) | payer MEDICARE, BC ==
--- NOTE | 2023-03-24 10:51 | MRI Report ---
PROCEDURE: LUMBAR SPINE WO INDICATIONS: LOW BACK PAIN, NUMBNESS TECHNIQUE: Noncontrast sagittal T1 spin echo and T2 fast echo, sagittal STIR, axial T1 and T2 fast spin echo thr ough the lumbar spine. In cases with scoliosis, additional coronal T2 fast spin echo may be performe d. COMPARISON: MRI lumbar spine 12/07/2016.. FINDINGS: Image quality: Excellent. Alignment and Curvature: Mild straightening of the normal lumbar lordosis. Mild anterolisthesis of L5 . Bone Marrow: Stable heterogeneous marrow signal with striations involving the L2 and L3 vertebral bod ies. This may represent hemangiomas. No acute vertebral body compression fractures. Spinal Cord: Conus medullaris terminates at the T12-L1 level. Visualized cord demonstrates normal s ignal and size. Paraspinous Soft Tissues: No paravertebral masses. Nonspecific left adrenal nodule measuring 10 mm. T12-L1: Disc desiccation and height loss. Facet arthropathy. No central canal or neuroforaminal sten osis. L1-L2: Disc desiccation. Facet arthropathy. No central canal stenosis. No neuroforaminal stenosis. L2-L3: Disc desiccation and height loss. Posterior disc bulge. Facet arthropathy and thickening of ligamentum flavum. Mild central canal stenosis progressed from prior. Mild left neuroforaminal steno sis. No right neuroforaminal stenosis. L3-L4: Height loss. Posterior disc bulge. Facet arthropathy and thickening of ligamentum flavum. Ep idural lipomatosis. Mild central canal stenosis is increased from prior. Moderate left and mild right neuroforaminal stenosis is progressed. L4-L5: Disc desiccation and height loss. Facet arthropathy. No central canal stenosis. Mild right n euroforaminal stenosis is stable. No left neuroforaminal stenosis. L5-S1: Disc desiccation. Facet arthropathy. No central canal stenosis. No neuroforaminal stenosis. IMPRESSION: 1.Degenerative changes of the lumbar spine as described above. 2.There is progression of degenerative disease at L2-L3 and L3-L4. There is mild central canal stenos is at these levels. Moderate left and mild right neuroforaminal stenosis at L3-L4. 3.Other levels are stable compared to prior. No high-grade stenosis. Reviewed by: Dawit Pereira MD on 03/24/2023 10:49 AM PST Approved by: Dawit Pereira MD on 03/24/2023 10:49 AM [facility] Station ID: [id number]
== END 2023-03-24 07:56 | disposition home or self-care (01) ==
LOC: DI 07:55
PROVIDERS: ATTEND Internal Medicine
DX: M47.816 Spondylosis without myelopathy or radiculopathy, lumbar region (principal); M51.36 Other intervertebral disc degeneration, lumbar region; M48.061 Spinal stenosis, lumbar region without neurogenic claudication

== ENCOUNTER 2023-06-22 09:11 | Outpatient (CLI) | payer MEDICARE, BC ==
[2023-06-22 09:51] LABS: MAGNESIUM 1.6 mg/dL (1.7-2.3)
[2023-06-22 10:21] LABS: CALCIUM 9.8 mg/dL (8.5-10.3); CREATININE 0.8 mg/dL (0.6-1.3)
== END 2023-06-22 09:12 | disposition home or self-care (01) ==
LOC: LAB 09:11
PROVIDERS: ATTEND Internal Medicine Cardiovascular Disease
DX: I25.42 Coronary artery dissection (principal)
CPT/HCPCS: 36415; 80048; 83735

== ENCOUNTER 2023-07-13 07:52 | Outpatient (CLI) | payer MEDICARE, BC ==
[2023-07-13 08:16] LABS: CALCIUM 9.5 mg/dL (8.5-10.3); CREATININE 0.9 mg/dL (0.6-1.3); POTASSIUM 4.4 mmol/L (3.5-4.5)
== END 2023-07-13 07:53 | disposition home or self-care (01) ==
LOC: LAB 07:52
PROVIDERS: ATTEND Internal Medicine Cardiovascular Disease
DX: I25.42 Coronary artery dissection (principal)
CPT/HCPCS: 36415; 80048

== ENCOUNTER 2023-09-07 07:43 | Outpatient (CLI) | payer MEDICARE, BC ==
--- NOTE | 2023-09-08 09:08 | Mammography Report ---
BILATERAL DIGITAL DIAGNOSTIC MAMMOGRAM 3D/2D: 09/07/2023 CLINICAL: Personal history of left breast cancer. Diffuse left breast pain. Due for bilateral exam. Comparison is made to exams dated: 09/05/2022 mammogram - [facility], 08/04/2022 [facility], 07/20/2021 mammogram - [facility], 08/12/2020 mammogram, and 05/09/2018 mammogram - [facility]. There are scattered areas of fibroglandular density in both breasts (category b / 25%-50% glandular t issue). There are post operative findings in both breasts. No significant masses, calcifications, or other findings are seen in either breast. There has been no significant interval change. IMPRESSION: BENIGN There is no mammographic evidence of malignancy. Stable post-operative findings in the left breast. Diffuse left breast pain. Exam findings were conveyed to the patient. Patient is advised to monitor for significant change. Pat ient is advised to monitor for significant change. A 1 year screening mammogram is recommended. This exam was interpreted at Station ID: [id number]. NOTE: For mammograms, a report in lay terms will be sent to the patient. Approximately 15% of breast malignancies will not be visualized mammographically. In the management of a palpable breast mass, a negative mammogram must not discourage biopsy of a clinically suspicious lesion. Electronically Signed By: Ivan Barajas M.D. slc/:09/07/2023 08:32:38 letter sent: No_Letter ACR BI-RADS Category 2: Benign Finding(s) 3342F PARENCHYMAL PATTERN: (A) - The breast(s) demonstrate(s) scattered fibroglandular densities. BI-RADS CATEGORY: (2) - 2 RECOMMENDATION: (ANNUAL) - Recommend routine annual screening mammography. [id number] 1 year screening LATERALITY: (B)
== END 2023-09-07 07:44 | disposition home or self-care (01) ==
LOC: DI 07:43
PROVIDERS: ATTEND Surgery
DX: C50.512 Malignant neoplasm of lower-outer quadrant of left female breast (principal); R92.323 Mammographic fibroglandular density, bilateral breasts; N64.4 Mastodynia; Z98.890 Other specified postprocedural states

== ENCOUNTER 2023-12-05 07:27 | Outpatient (CLI) | payer MEDICARE, BC ==
[2023-12-05 07:41] LABS: BASOPHILS # (AUTO) 0.1 10^3/uL (0.0-0.1); BASOPHILS % (AUTO) 0.9 %; EOSINOPHILS # (AUTO) 0.2 10^3/uL (0.0-0.7); EOSINOPHILS % (AUTO) 3.6 %; HCT - HEMATOCRIT 44.7 % (37.0-47.0); HGB - HEMOGLOBIN 14.9 g/dL (12.0-16.0); LYMPHOCYTES # (AUTO) 1.3 10^3/uL (1.5-3.5); LYMPHOCYTES % (AUTO) 23.5 %; MEAN CORPUSCULAR HEMOGLOBIN 28.7 pg (27.0-31.0); MEAN CORPUSCULAR HGB CONC 33.3 g/dL (32.0-36.0); MEAN PLATELET VOLUME 9.7 fL (7.9-10.8); MONOCYTES # (AUTO) 0.5 10^3/uL (0.0-1.0); MONOCYTES % (AUTO) 8.1 %; NEUTROPHILS # (AUTO) 3.6 10^3/uL (1.5-6.6); NEUTROPHILS % (AUTO) 63.7 %; PLT - PLATELET COUNT 190 10^3/uL (130-450); RED CELL DISTRIBUTION WIDTH 13.7 % (12.0-15.0); WHITE BLOOD COUNT 5.6 x10^3/uL (4.8-10.8)
[2023-12-05 08:03] LABS: ALBUMIN 4.3 g/dL (3.2-5.5); ALBUMIN/GLOBULIN RATIO 1.7 (1.0-2.2); ALKALINE PHOSPHATASE 61 IU/L (42-121); ALT ALANINE AMINOTRANSFERASE 25 IU/L (10-60); AST ASPARTATE AMINOTRANSFERASE 23 IU/L (10-42); BILIRUBIN,TOTAL 0.9 mg/dL (0.2-1.0); BUN - BLOOD UREA NITROGEN 13 mg/dL (6-20); CALCIUM 9.4 mg/dL (8.5-10.3); CARBON DIOXIDE - CO2 28 mmol/L (21-32); CHLORIDE 104 mmol/L (101-111); CHOL/HDL RATIO 2.6 (<4.4); CHOLESTEROL 106 mg/dL; CREATININE 0.8 mg/dL (0.6-1.3); GFR - MDRD 69 (>89); GLUCOSE 148 mg/dL (74-104); HDL CHOLESTEROL 41 mg/dL; LDL CHOLESTEROL,CALCULATED 41 mg/dL; POTASSIUM 4.1 mmol/L (3.5-4.5); SODIUM 139 mmol/L (135-145); TOTAL PROTEIN 6.8 g/dL (6.4-8.9); TRIGLYCERIDES 122 mg/dL; VLDL CHOLESTEROL 24 mg/dL
[2023-12-05 08:14] LABS: THYROID STIMULATING HORMONE 1.95 uIU/mL (0.34-5.60)
[2023-12-05 08:32] LABS: ESTIMATED AVERAGE GLUCOSE 148 mg/dL (70-100); HEMOGLOBIN A1c% 6.8 % (4.27-6.07)
== END 2023-12-05 07:28 | disposition home or self-care (01) ==
LOC: LAB 07:27
PROVIDERS: ATTEND Family Medicine
DX: E11.65 Type 2 diabetes mellitus with hyperglycemia (principal); E78.5 Hyperlipidemia, unspecified; I10 Essential (primary) hypertension; I25.10 Atherosclerotic heart disease of native coronary artery without angina pectoris
CPT/HCPCS: 36415; 80053; 80061; 83036; 83721; 84443; 85025